=== PATIENT | female | born 1980 | race Caucasian/White ===

== ENCOUNTER 2017-12-17 11:31 | Inpatient (IN) | payer MEDICAID, OTHER ==
--- NOTE | 2017-12-17 12:11 | ED ---
Psych HPI - General Chief Complaint: Psychiatric Symptoms Stated Complaint: Depression Time Seen by Provider: 12/17/17 11:50 Source: patient, RN notes reviewed Mode of arrival: ambulatory Limitations: no limitations - History of Present Illness Initial Comments: 37-year-old female presents emergency Department chief complaint of depression. Patient states she's suffering with severe depression. Patient saw her EXPLOSIVE MAN who started on Lexapro. Patient states that she feels like she is worse. Patient states that she does not want to harm herself or the baby. Patient has no physical complaints. Patient states she has been diagnosed with bipolar disorder in the past which is been untreated. Patient does take medications for hypertension though she states she had no diagnosis of preeclampsia. - Related Data Home Medications Medication Instructions Recorded Confirmed Escitalopram [Lexapro] 20 mg PO DAILY 12/17/17 12/17/17 HYDROcodone/APAP 5-325MG [[place] 1 tab PO DAILY PRN 12/17/17 12/17/17 5-325] Ibuprofen [Motrin] 600 mg PO Q6H PRN 12/17/17 12/17/17 Labetalol [Trandate] 200 mg PO DAILY 12/17/17 12/17/17 Pnv,Calcium 72/Iron/Folic Acid 1 tab PO DAILY 12/17/17 12/17/17 [ Plus Tablet] Allergies Allergy/AdvReac Type Severity Reaction Status Date / Time amoxicillin Allergy Unknown Verified 12/17/17 12:41 Penicillins Allergy Unknown Verified 12/17/17 12:41 Review of Systems ROS Statement: Those systems with pertinent positive or pertinent negative responses have been documented in the HPI. ROS Other: All systems not noted in ROS Statement are negative. Past Medical History Past Medical History: No Reported History History of Any Multi-Drug Resistant Organisms: None Reported Past Surgical History: Section Past Psychological History: Anxiety, Bipolar, Depression Smoking Status: Current every day smoker Past Alcohol Use History: Occasional Past Drug Use History: None Reported General Exam Limitations: no limitations General appearance: alert, in no apparent distress Head exam: Present: atraumatic, normocephalic, normal inspection Eye exam: Present: normal appearance, PERRL, EOMI. Absent: scleral icterus, conjunctival injection, periorbital swelling ENT exam: Present: normal exam, normal oropharynx, mucous membranes moist Neck exam: Present: normal inspection, full ROM. Absent: tenderness, meningismus, lymphadenopathy Respiratory exam: Present: normal lung sounds bilaterally. Absent: respiratory distress, wheezes, rales, rhonchi, stridor Cardiovascular Exam: Present: regular rate, normal rhythm, normal heart sounds. Absent: systolic murmur, diastolic murmur, rubs, gallop, clicks Neurological exam: Present: alert, oriented X3, CN II-XII intact Psychiatric exam: Present: depressed Course Vital Signs 12/17/17 11:41 Temperature 98.2 F Pulse Rate 68 Respiratory 16 Rate Blood Pressure 127/85 O2 Sat by Pulse 98 Oximetry Medical Decision Making - Medical Decision Making 37-year-old female presented for depression. Patient has depression. Patient reportedly has self harming I cutting her leg which was not disclosed initially. Patient will be admitted to the psychiatric unit for further help and evaluation - Lab Data Lab Results 12/17/17 12/17/17 Range/Units 12:20 12:20 Urine HCG, Qual Not Detected (Not Detectd) Urine Opiates Screen Detected H (NotDetected) Ur Oxycodone Screen Not Detected (NotDetected) Urine Methadone Screen Not Detected (NotDetected) Ur Propoxyphene Screen Not Detected (NotDetected) Ur Barbiturates Screen Not Detected (NotDetected) U Tricyclic Antidepress Not Detected (NotDetected) Ur Phencyclidine Scrn Not Detected (NotDetected) Ur Amphetamines Screen Detected H (NotDetected) U Methamphetamines Scrn Detected H (NotDetected) U Benzodiazepines Scrn Not Detected (NotDetected) Urine Cocaine Screen Not Detected (NotDetected) U Marijuana (THC) Screen Detected H (NotDetected) Disposition Clinical Impression: depression, Deliberate self-cutting Disposition: TRANSFER TO PSYCH HOSP/UNIT Condition: Stable Referrals: None,Stated [Primary Care Provider] - 1-2 days
[2017-12-17 13:34] LABS: Amphetamine Screen,Urine Detected (NotDetected); Barbiturate Screen,Urine Not Detected (NotDetected); Benzodiazepines Screen,Urine Not Detected (NotDetected); Cocaine Screen,Urine Not Detected (NotDetected); Methadone Screen, Urine Not Detected (NotDetected); Opiate Screen,Urine Detected (NotDetected); Oxycodone Screen, Urine Not Detected (NotDetected); Phencyclidine Screen,Urine Not Detected (NotDetected); Tricyclic Antidepressant,Urine Not Detected (NotDetected); Urn Cannabinoid Scrn Detected (NotDetected)
[2017-12-17] MEDS ORDERED: ACETAMINOPHEN TAB 325 MG TAB PO PRN (19:38)
[2017-12-17] MEDS ORDERED: MAGNESIUM HYDROXIDE 2,400 MG/10 ML CUP PO PRN (19:38)
[2017-12-17] MEDS ORDERED: LORazepam 1 MG TAB PO PRN (19:38)
[2017-12-17] MEDS ORDERED: MAG HYDROX/AL HYDROX/SIMETH 30 ML CUP PO PRN (19:38)
[2017-12-17] MEDS ORDERED: ZIPRASIDONE 20 MG VIAL IM PRN (19:38)
[2017-12-17 19:43] VITALS: RESP 16
[2017-12-17 20:50] LABS: Appearance,Urine Clear (Clear); Bacteria,Urine Occasional /hpf; Bilirubin,Urine Negative (Negative); Blood,Urine Large (Negative); Color,Urine Light Yellow; Glucose,Urine (UA) Negative (Negative); Ketones,Urine 2+ (Negative); Leukocyte Esterase,Urine Moderate (Negative); Mucus,Urine Rare /hpf; Nitrite,Urine Negative (Negative); PH, Urine 6.5 (5.0-8.0); Protein,Urine Negative (Negative); RBC,Urine <1 /hpf (0-5); Specific Gravity,Urine 1.005 (1.001-1.035); Squamous Epithelial Cell,Urine 2 /hpf (0-4); Urobilinogen,Urine <2.0 mg/dL (<2.0); WBC,Urine 17 /hpf (0-5)
[2017-12-17] MEDS ORDERED: IBUPROFEN 600 MG TAB PO PRN (21:20)
--- NOTE | 2017-12-17 23:25 | P.HPMEDMHU ---
History of Present Illness H&P Date: 12/17/17 Chief Complaint: depression and anxiety Awa is a 37-year-old female with history of bipolar disorder, anxiety, who states she has history of suicide attempts in the past she is currently 2 months and states that she was struggling with depression so she was admitted to the psychiatric unit for psychiatric optimization. Patient states she also has a history of hypertension and needed to have a emergent because of uncontrolled blood pressure and stress to the baby. She denies any headaches, chills, dysuria or frequency. She states she was feeling more anxious than her mother was recently diagnosed with pancreatic cancer which is causing her more stress. Patient denied any other complaints states she is going to the bathroom normally denies any chest pain or shortness of breath Review of Systems Complete review of systems done and was negative other stated above Past Medical History Past Medical History: No Reported History, Hypertension History of Any Multi-Drug Resistant Organisms: None Reported Past Surgical History: Section Smoking Status: Current every day smoker Medications and Allergies Home Medications Medication Instructions Recorded Confirmed Type Escitalopram [Lexapro] 20 mg PO DAILY 12/17/17 12/17/17 History HYDROcodone/APAP 5-325MG [[place] 1 tab PO DAILY PRN 12/17/17 12/17/17 History 5-325] Ibuprofen [Motrin] 600 mg PO Q6H PRN 12/17/17 12/17/17 History Labetalol [Trandate] 200 mg PO DAILY 12/17/17 12/17/17 History Pnv,Calcium 72/Iron/Folic Acid 1 tab PO DAILY 12/17/17 12/17/17 History [ Plus Tablet] Allergies Allergy/AdvReac Type Severity Reaction Status Date / Time amoxicillin Allergy Unknown Verified 12/17/17 19:46 Penicillins Allergy Unknown Verified 12/17/17 19:46 Physical Exam Vitals: Vital Signs Temp Pulse Pulse Resp BP BP Pulse Ox 12/17/17 19:42 97.5 F L 102 H 16 110/78 96 12/17/17 18:58 98.3 F 94 18 105/79 97 12/17/17 11:41 98.2 F 68 16 127/85 98 Intake and Output 12/17/17 12/17/17 12/18/17 14:59 22:59 06:59 Other: Weight 57.153 kg - Constitutional General appearance: no acute distress - EENT Eyes: PERRLA Ears: bilateral: normal - Respiratory Respiratory: bilateral: CTA - Cardiovascular Rhythm: regular - Gastrointestinal General gastrointestinal: normal bowel sounds, soft - Integumentary Integumentary: normal - Neurologic Neurologic: CNII-XII intact - Musculoskeletal Musculoskeletal: gait normal - Psychiatric Psychiatric: A&O x's 3, appropriate affect Cranial Nerve Examination - Cranial Nerves Cranial Nerve II- Optic: Intact Cranial Nerve III- Oculomotor: Intact Cranial Nerve IV- Trochlear: Intact Cranial Nerve V- Trigeminal: Intact Cranial Nerve - Abducens: Intact Cranial Nerve VII- Facial: Intact Cranial Nerve VIII- Auditory: Intact Cranial Nerve IX- Glossopharyngeal: Intact Cranial Nerve X- Vagus: Intact Cranial Nerve XI- Accessory: Intact Cranial Nerve XII- Hypoglossal: Intact Results Results: Will check in am Labs: Abnormal Lab Results - Last 24 Hours (Table) 12/17/17 12/17/17 Range/Units 12:20 20:28 Urine Ketones 2+ H (Negative) Urine Blood Large H (Negative) Ur Leukocyte Esterase Moderate H (Negative) Urine WBC 17 H (0-5) /hpf Urine Bacteria Occasional H (None) /hpf Urine Mucus Rare H (None) /hpf Urine Opiates Screen Detected H (NotDetected) Ur Amphetamines Screen Detected H (NotDetected) U Methamphetamines Scrn Detected H (NotDetected) U Marijuana (THC) Screen Detected H (NotDetected) Thrombosis Risk Factor Assmnt - Choose All That Apply Each Factor Represents 1 point: or Other Risk Factors: No Other congenital or acquired thrombophilia - If yes, enter type in comment: No Thrombosis Risk Factor Assessment Total Risk Factor Score: 1 Thrombosis Risk Factor Assessment Level: Low Risk Assessment and Plan (1) HTN (hypertension) Narrative/Plan: Continue patient's outpatient regiment and titrate as needed Current Visit: Yes Status: Acute Code(s): I10 - ESSENTIAL (PRIMARY) HYPERTENSION SNOMED Code(s): 87744308 (2) Tobacco abuse Narrative/Plan: Patient was counseled Current Visit: Yes Status: Acute Code(s): Z72.0 - TOBACCO USE SNOMED Code( s): 105949152 (3) depression Narrative/Plan: Continue per primary team Current Visit: Yes Status: Acute Code(s): F53.0 - DEPRESSION SNOMED Code(s): 89886079 Plan: Thank you for the consult optimize as needed we'll check labs, follow-up urine culture this time UA was reviewed no clear evidence of infection await culture
[2017-12-18] MEDS: NICOTINE 14MG/24HR PATCH TRANSDERM SCH ×2 (00:13→08:14)
[2017-12-18] MEDS: PRENATAL VIT-IRON-FOLIC ACID 1 EACH CAP PO SCH ×2 (08:14→08:15)
[2017-12-18] MEDS: LABETALOL 200 MG TAB PO SCH (08:15)
[2017-12-18 09:43] LABS: ALT 52 U/L (9-52); AST 35 U/L (14-36); Albumin 3.8 g/dL (3.5-5.0); Alkaline Phosphatase 52 U/L (38-126); Anion Gap 7 mmol/L; Blood Urea Nitrogen 15 mg/dL (7-17); Calcium 9.6 mg/dL (8.4-10.2); Carbon Dioxide 29 mmol/L (22-30); Chloride 103 mmol/L (98-107); Cholesterol 142 mg/dL (<200); Glucose 124 mg/dL (74-99); HDL Cholesterol 39 mg/dL (40-60); LDL Cholesterol,Calculated 78 mg/dL (0-99); Potassium 3.9 mmol/L (3.5-5.1); Sodium 139 mmol/L (137-145); Total Bilirubin 0.6 mg/dL (0.2-1.3); Total Protein 7.2 g/dL (6.3-8.2); Triglycerides 126 mg/dL (<150)
[2017-12-18 10:25] LABS: Basophils # (A) 0.1 k/uL (0-0.2); Basophils % (A) 1 %; Eosinophils # (A) 0.2 k/uL (0-0.7); Eosinophils % (A) 3 %; HCT 41.3 % (34.0-46.0); HGB 13.4 gm/dL (11.4-16.0); Lymphocytes # (A) 3.3 k/uL (1.0-4.8); Lymphocytes % (A) 36 %; MCH 28.9 pg (25.0-35.0); MCHC 32.5 g/dL (31.0-37.0); MCV 88.7 fL (80.0-100.0); Mean Platelet Volume 6.4; Monocytes # (A) 0.5 k/uL (0-1.0); Monocytes % (A) 6 %; Neutrophils # (A) 4.9 k/uL (1.3-7.7); Neutrophils % (A) 53 %; Platelet Count 403 k/uL (150-450); RBC 4.65 m/uL (3.80-5.40); RDW 12.7 % (11.5-15.5); WBC 9.2 k/uL (3.8-10.6)
--- NOTE | 2017-12-18 10:35 | P.HP ---
Psychiatric H&P - . H&P Date: 12/18/17 History & Physical: Allergies Allergy/AdvReac Type Severity Reaction Status Date / Time amoxicillin Allergy Unknown Verified 12/17/17 19:46 Penicillins Allergy Unknown Verified 12/17/17 19:46 Vital Signs Temp 98 F 12/18/17 06:23 Pulse 83 12/18/17 06:23 Resp 16 12/18/17 06:23 BP 99/71 12/18/17 06:23 Pulse Ox 96 12/17/17 19:42 Intake & Output 12/17/17 12/18/17 12/18/17 18:59 06:59 18:59 Weight 57.153 kg Laboratory Last Values Sodium 139 mmol/L (137-145) 12/18/17 09:07 Potassium 3.9 mmol/L (3.5-5.1) 12/18/17 09:07 Chloride 103 mmol/L (98-107) 12/18/17 09:07 Carbon Dioxide 29 mmol/L (22-30) 12/18/17 09:07 Anion Gap 7 mmol/L 12/18/17 09:07 BUN 15 mg/dL (7-17) 12/18/17 09:07 Creatinine 0.71 mg/dL (0.52-1.04) 12/18/17 09:07 Est GFR (CKD-EPI)AfAm >90 (>60 ml/min/1.73 sqM) 12/18/17 09:07 Est GFR (CKD-EPI)NonAf >90 (>60 ml/min/1.73 sqM) 12/18/17 09:07 Glucose 124 mg/dL (74-99) H 12/18/17 09:07 Calcium 9.6 mg/dL (8.4-10.2) 12/18/17 09:07 Total Bilirubin 0.6 mg/dL (0.2-1.3) 12/18/17 09:07 AST 35 U/L (14-36) 12/18/17 09:07 ALT 52 U/L (9-52) 12/18/17 09:07 Alkaline Phosphatase 52 U/L (38-126) 12/18/17 09:07 Total Protein 7.2 g/dL (6.3-8.2) 12/18/17 09:07 Albumin 3.8 g/dL (3.5-5.0) 12/18/17 09:07 Triglycerides 126 mg/dL (<150) 12/18/17 09:07 Cholesterol 142 mg/dL (<200) 12/18/17 09:07 LDL Cholesterol, Calc 78 mg/dL (0-99) 12/18/17 09:07 HDL Cholesterol 39 mg/dL (40-60) L 12/18/17 09: TSH 0.281 mIU/L (0.465-4.680) L 12/18/17 09:07 Urine Color Light Yellow 12/17/17 20: Urine Appearance Clear (Clear) 12/17/17 20: Urine pH 6.5 (5.0-8.0) 12/17/17 20: Ur Specific [place] 1.005 (1.001-1.035) 12/17/17 20: Urine Protein Negative (Negative) 12/17/17 20: Urine Glucose (UA) Negative (Negative) 12/17/17 20: Urine Ketones 2+ (Negative) H 12/17/17 20: Urine Blood Large (Negative) H 12/17/17 20:28 Urine Nitrite Negative (Negative) 12/17/17 20: Urine Bilirubin Negative (Negative) 12/17/17 20: Urine Urobilinogen <2.0 mg/dL (<2.0) 12/17/17 20:28 Ur Leukocyte Esterase Moderate (Negative) H 12/17/17 20:28 Urine RBC <1 /hpf (0-5) 12/17/17 20: Urine WBC 17 /hpf (0-5) H 12/17/17 20:28 Ur Squamous Epith Cells 2 /hpf (0-4) 12/17/17 20:28 Urine Bacteria Occasional /hpf (None) H 12/17/17 20:28 Urine Mucus Rare /hpf (None) H 12/17/17 20:28 Urine HCG, Qual Not Detected (Not Detectd) 12/17/17 12:20 Urine Opiates Screen Detected (NotDetected) H 12/17/17 12:20 Ur Oxycodone Screen Not Detected (NotDetected) 12/17/17 12:20 Urine Methadone Screen Not Detected (NotDetected) 12/17/17 12:20 Ur Propoxyphene Screen Not Detected (NotDetected) 12/17/17 12:20 Ur Barbiturates Screen Not Detected (NotDetected) 12/17/17 12:20 U Tricyclic Antidepress Not Detected (NotDetected) 12/17/17 12:20 Ur Phencyclidine Scrn Not Detected (NotDetected) 12/17/17 12:20 Ur Amphetamines Screen Detected (NotDetected) H 12/17/17 12:20 U Methamphetamines Scrn Detected (NotDetected) H 12/17/17 12:20 U Benzodiazepines Scrn Not Detected (NotDetected) 12/17/17 12:20 Urine Cocaine Screen Not Detected (NotDetected) 12/17/17 12:20 U Marijuana (THC) Screen Detected (NotDetected) H 12/17/17 12:20 Assessment and Plan Assessment: 37-year-old female presents emergency Department chief complaint of depression. Patient states she's suffering with severe depression. Patient saw her EXPLOSIVES ENGINEER who started on Lexapro. Patient states that she feels like she is worse. Patient states that she does not want to harm herself or the baby. Patient has no physical complaints. Patient states she has been diagnosed with bipolar disorder in the past which is been untreated. Patient does take medications for hypertension though she states she had no diagnosis of preeclampsia. Musculoskeletal Examination - Abnormal/Involuntary Movements: [none] Strength: [greater than antigravity (greater than/equal to 3/5) in all extremities:] Muscle Tone: [no impairment] Gait: [grossly normal] Station: [grossly normal] Mental Status Examination - General Appearance: [ casual, bizarre, appears stated age] Speech/Language: [spontaneous, slow, rapid, loud Attitude/Behavior: [cooperative, guarded, irritable, withdrawn, indifferent] Mood: [depressed, anxious, elated, irritable, angry, fearful, hopelessness] Affect: [ lively, flat, incongruent, labile, blunted constricted] Orientation: [time, person, place situation] Thought Content: [wnl Risk Factors: [not suicidal (ideations, plan) Perception: [wnl Thought Processes: [goal-oriented Concentration/Attention Span: [impaired] [Per observation and interview with the patient] Recent Memory: [wnl ] [ 3 out of 3 in 3 minutes] Remote Memory: [wnl] [past events, as related history] Intelligence: [average] [based on history, based on vocabulary, syntax, grammar , and content] Judgement: [ fair] [per patient's behavior/history of present illness] Insight: [fair] [understanding severity of illness/history of present illness] Admitting Diagnosis: [bipolar disorder-depressed] Patient Strengths - Personal Skills: [x] Achievements: [x] Steady employment/financial stability: [x] Housing stability: [x] Able to vocalize needs: [x] Motivation, determination, readiness for change: [x] Patient Limitations: [medication] Initial Plan of Care: [She will be admitted on a voluntary basis to the behavioral health unit. She'll be placed in delgado milieu therapeutic environment and close observation for any suicidal ideation. She does have a history of cutting one week ago on her legs. She'll be evaluated by psychiatry , medicine, nursing staff, social work staff, recreational therapy and will be evaluated in team meetings on a daily basis her initial medications will be Invega 3 mg by mouth daily at bedtime, Lamictal 25 mg by mouth daily at bedtime , and Mirapex 0.5 mg for restless leg syndrome.] Estimated Length of Stay: [5-7] Initial Discharge Plan: [home, referred to therapist Prognosis: [good, fair, guarded] Justification for Inpatient Hospitalization - [Hallucinations, delusions, agitation, anxiety, depression resulting in significant loss of functioning.] [Dangerous to self, others, or property with need for controlled environment.] [Emotional or behavioral conditions and complications requiring 24 hour medical and nursing care.] [Need for special drug therapy, or other therapeutic program requiring continuous hospitalization.] [Failure of social or occupational functioning.] [Inability to meet basic life and health needs.] (1) Deliberate self-cutting Current Visit: Yes Status: Acute Code(s): Z72.89 - OTHER PROBLEMS RELATED TO LIFESTYLE SNOMED Code(s): 510137869 (2) depression Current Visit: Yes Status: Acute Code(s): F53.0 - DEPRESSION SNOMED Code(s): 39387987 Time with Patient: Greater than 30
[2017-12-18] MEDS: PALIPERIDONE 3 MG TAB.ER.24 PO SCH (20:19)
[2017-12-18] MEDS: PRAMIPEXOLE 0.5 MG TAB PO SCH (20:19)
[2017-12-18] MEDS: HYDROcodone/APAP 5-325MG 1 EACH TAB PO PRN (20:24)
[2017-12-18] MEDS ORDERED: lamoTRIgine 25 MG TAB PO SCH (21:00)
[2017-12-19] MEDS: LABETALOL 200 MG TAB PO SCH (08:02)
[2017-12-19] MEDS: NICOTINE 14MG/24HR PATCH TRANSDERM SCH (08:02)
[2017-12-19] MEDS: HYDROcodone/APAP 5-325MG 1 EACH TAB PO PRN (08:05)
--- NOTE | 2017-12-19 10:04 | P.PN ---
Subjective Progress Note Date: 12/19/17 Principal diagnosis: Bipolar affective disorder depressed Patient today states that she feels not suicidal nor homicidal and with the rest she's been able to get with the Mirapex 0.5 mg by mouth daily at bedtime for restless leg that she feels remarkably better. She feels the Invega has helped her along with Lamictal 25 mg at bedtime. She feels environment has been supportive and helped her regain control of her life and handle life stressors. She talked about wanting to go home tomorrow and I agree with her after Lamictal 50 mg by mouth daily at bedtime and rest begun outpatient basis. Objective - Vital Signs Vital signs: Vital Signs Temp 98 F 12/18/17 06:23 Pulse 83 12/18/17 06:23 Resp 16 12/18/17 06:23 BP 99/71 12/18/17 06:23 Pulse Ox 96 12/17/17 19:42 - Labs CBC & Chem 7: 12/18/17 09:07 12/18/17 09:07 Labs: Abnormal Lab Results - Last 24 Hours (Table) 12/18/17 Range/Units 09:07 TSH 0.281 L (0.465-4.680) mIU/L Assessment and Plan Assessment: 37-year-old female presents emergency Department chief complaint of depression. Patient states she's suffering with severe depression. Patient saw her GOVERNMENT GAUGER who started on Lexapro. Patient states that she feels like she is worse. Patient states that she does not want to harm herself or the baby. Patient has no physical complaints. Patient states she has been diagnosed with bipolar disorder in the past which is been untreated. Patient does take medications for hypertension though she states she had no diagnosis of preeclampsia. Musculoskeletal Examination - Abnormal/Involuntary Movements: [none] Strength: [greater than antigravity (greater than/equal to 3/5) in all extremities:] Muscle Tone: [no impairment] Gait: [grossly normal] Station: [grossly normal] Mental Status Examination - General Appearance: [ casual, bizarre, appears stated age] Speech/Language: [spontaneous, slow, rapid, loud Attitude/Behavior: [cooperative, guarded, irritable, withdrawn, indifferent] Mood: [depressed, anxious, elated, irritable, angry, fearful, hopelessness] Affect: [ lively, flat, incongruent, labile, blunted constricted] Orientation: [time, person, place situation] Thought Content: [wnl Risk Factors: [not suicidal (ideations, plan) Perception: [wnl Thought Processes: [goal-oriented Concentration/Attention Span: [impaired] [Per observation and interview with the patient] Recent Memory: [wnl ] [ 3 out of 3 in 3 minutes] Remote Memory: [wnl] [past events, as related history] Intelligence: [average] [based on history, based on vocabulary, syntax, grammar , and content] Judgement: [ fair] [per patient's behavior/history of present illness] Insight: [fair] [understanding severity of illness/history of present illness] Admitting Diagnosis: [bipolar disorder-depressed] Patient Strengths - Personal Skills: [x] Achievements: [x] Steady employment/financial stability: [x] Housing stability: [x] Able to vocalize needs: [x] Motivation, determination, readiness for change: [x] Patient Limitations: [medication] Initial Plan of Care: [She will be admitted on a voluntary basis to the behavioral health unit. She'll be placed in delgado milieu therapeutic environment and close observation for any suicidal ideation. She does have a history of cutting one week ago on her legs. She'll be evaluated by psychiatry , medicine, nursing staff, social work staff, recreational therapy and will be evaluated in team meetings on a daily basis her initial medications will be Invega 3 mg by mouth daily at bedtime for delusional/psychotic thoughts, Lamictal 50 mg by mouth daily at bedtime, and Mirapex 0.5 mg for restless leg syndrome.] Estimated Length of Stay: [1] Initial Discharge Plan: [home, referred to therapist, [facility] Prognosis: [good] Justification for Inpatient Hospitalization - [Emotional or behavioral conditions and complications requiring 24 hour medical and nursing care.] [Need for special drug therapy, or other therapeutic program requiring continuous hospitalization.] (1) Deliberate self-cutting Current Visit: Yes Status: Acute Priority: Low Code(s): Z72.89 - OTHER PROBLEMS RELATED TO LIFESTYLE SNOMED Code(s): 152284992 (2) depression Current Visit: Yes Status: Acute Priority: Low Code(s): F53.0 - DEPRESSION SNOMED Code(s): 72293160 Time with Patient: Less than 30
[2017-12-19] MEDS: PALIPERIDONE 3 MG TAB.ER.24 PO SCH (20:08)
[2017-12-19] MEDS: PRAMIPEXOLE 0.5 MG TAB PO SCH (20:08)
[2017-12-19] MEDS ORDERED: lamoTRIgine 25 MG TAB PO SCH (21:00)
[2017-12-20 06:34] VITALS: BP 111/65; PULSE 87; TEMP 98.2
[2017-12-20] MEDS: NICOTINE 14MG/24HR PATCH TRANSDERM SCH (08:51)
[2017-12-20] MEDS: LABETALOL 200 MG TAB PO SCH (08:52)
[2017-12-20] MEDS: PRENATAL VIT-IRON-FOLIC ACID 1 EACH CAP PO SCH (08:52)
[2017-12-20] MEDS: HYDROcodone/APAP 5-325MG 1 EACH TAB PO PRN (08:54)
--- NOTE | 2017-12-20 09:55 | P.DS ---
Providers Date of admission: 12/17/17 18:40 Expected date of discharge: 12/20/17 Attending physician: Anand Ybarra DO Consults: 12/17/17 19:38 Consult Physician Routine Consulting Provider: Alex Mendieta Consult Reason/Comments: H&P for mental health admission Do you want consulting provider notified?: Yes Primary care physician: Stated None - Discharge Diagnosis(es) (1) Deliberate self-cutting 37-year-old female presents emergency Department chief complaint of depression. Patient states she's suffering with severe depression. Patient saw her SLUBBER MACHINE OPERATOR who started on Lexapro. Patient states that she feels like she is worse. Patient states that she does not want to harm herself or the baby. Patient has no physical complaints. Patient states she has been diagnosed with bipolar disorder in the past which is been untreated. Patient does take medications for hypertension though she states she had no diagnosis of preeclampsia. Current Visit: Yes Status: Resolved Priority: Low (2) depression Current Visit: Yes Status: Resolved Priority: Low Hospital Course: Kathy was evaluated for her depression and psychosis which were resulted in a diagnoses of bipolar affective disorder. We discussed her medication Lexapro which is inappropriate and switch her to Invega 3 mg by mouth daily at bedtime and Lamictal 50 mg by mouth daily at bedtime and should be further titrated and outpatient basis. She has shown that she has clear sensorium appropriateness with peers and staff and interacting delgado milieu therapeutic environment and positive emotional stability. Mental status examination The patient presents alert, pleasant, and cooperative. There calmly seated without any agitated behavior. [She] reports that [her] mood is good. Affect is congruent and euthymic. [She] deny having any suicidal or homicidal ideation intent or plan. [She] denies any auditory or visual hallucinations. There is no evidence of any delusional thought content. [Her] thought process is linear and goal-directed. [Her] speech is fluent and nonpressured. [Her] memory and concentration is grossly intact for the purposes of this session. Discharge diagnosis; bipolar affective disorderdepressed type Patient Condition at Discharge: Stable Plan - Discharge Summary Discharge Rx Participant: No New Discharge Prescriptions: New lamoTRIgine [LaMICtal] 50 mg PO 2100 30 Days #60 tab Paliperidone [Invega] 3 mg PO 2100 30 Days #30 tab.er.24 Pramipexole [Mirapex] 0.5 mg PO HS 30 Days #30 tab Discontinued Pnv,Calcium 72/Iron/Folic Acid [ Plus Tablet] 1 tab PO DAILY Labetalol [Trandate] 200 mg PO DAILY Ibuprofen [Motrin] 600 mg PO Q6H PRN PRN Reason: Pain Escitalopram [Lexapro] 20 mg PO DAILY HYDROcodone/APAP 5-325MG [[place] 5-325] 1 tab PO DAILY PRN PRN Reason: Pain Discharge Medication List Paliperidone [Invega] 3 mg PO 2100 30 Days #30 tab.er.24 12/20/17 [Rx] Pramipexole [Mirapex] 0.5 mg PO HS 30 Days #30 tab 12/20/17 [Rx] lamoTRIgine [LaMICtal] 50 mg PO 2100 30 Days #60 tab 12/20/17 [Rx] Follow up Appointment(s)/Referral(s): [facility] [Outside] - 12/27/17 9:00 am (Agueda Mariano 12/27 @ 09:00 Dr High 12/27 @ 10:00) None,Stated [Primary Care Provider] - 1-2 days Discharge Disposition: HOME SELF-CARE
== END 2017-12-20 12:46 | disposition home or self-care (01) | DRG 885 ==
LOC: EC 11:31 → 3MHU 18:40
PROVIDERS: ADMIT Psychiatry & Neurology Psychiatry; ATTEND Psychiatry & Neurology Psychiatry
DX: F31.5 Bipolar disorder, current episode depressed, severe, with psychotic features (principal); G25.81 Restless legs syndrome; F17.200 Nicotine dependence, unspecified, uncomplicated; F41.9 Anxiety disorder, unspecified; Z79.899 Other long term (current) drug therapy; Z88.0 Allergy status to penicillin; Z91.5 Personal history of self-harm
CPT/HCPCS: 80053; 80061; 80306; 81001; 81025; 82075; 83036; 84443; 85025; 99285

== ENCOUNTER 2018-01-17 15:06 | Inpatient (IN) | payer MEDICAID, OTHER ==
--- NOTE | 2018-01-17 16:16 | ED ---
General Adult HPI - General Chief complaint: Psychiatric Symptoms Stated complaint: mental health Time Seen by Provider: 01/17/18 15:19 Source: patient, RN notes reviewed Mode of arrival: ambulatory Limitations: no limitations - History of Present Illness Initial comments: 37-year-old female with a past history of hypertension, bipolar disorder, depression, anxiety presents to the emergency department for a chief complaint of self-harm and suicidal thoughts. Patient states she has cut her right leg with a shaving razor as well as her left arm. Tetanus up-to-date. Patient states she has been having suicidal thoughts over the past few days and today considered throwing herself into traffic. Patient denies suicidal thoughts at this time. She denies homicidal thoughts at this time. Patient states she is on her third med change this month which she thinks is contributing to these thoughts.Patient has no other complaints at this time including shortness of breath, chest pain, abdominal pain, nausea or vomiting, headache, or visual changes. - Related Data Home Medications Medication Instructions Recorded Confirmed Medroxyprogesterone Acetate 150 mg IM ONCE 01/17/18 01/17/18 [Depo-Provera] OXcarbazepine [Trileptal] 150 mg PO BID 01/17/18 01/17/18 Paliperidone [Invega] 3 mg PO DAILY 01/17/18 01/17/18 Pramipexole [Mirapex] 0.5 mg PO DAILY 01/17/18 01/17/18 hydrOXYzine HCL [Atarax] 50 mg PO HS 01/17/18 01/17/18 lamoTRIgine [LaMICtal] 50 mg PO DAILY 01/17/18 01/17/18 Allergies Allergy/AdvReac Type Severity Reaction Status Date / Time amoxicillin Allergy Unknown Verified 01/17/18 15:38 Penicillins Allergy Unknown Verified 01/17/18 15:38 Review of Systems ROS Statement: Those systems with pertinent positive or pertinent negative responses have been documented in the HPI. ROS Other: All systems not noted in ROS Statement are negative. Past Medical History Past Medical History: No Reported History, Hypertension History of Any Multi-Drug Resistant Organisms: None Reported Past Surgical History: Section Past Psychological History: Anxiety, Bipolar, Depression Smoking Status: Current every day smoker General Exam Limitations: no limitations General appearance: alert, in no apparent distress Head exam: Present: atraumatic, normocephalic, normal inspection Eye exam: Present: normal appearance, PERRL, EOMI. Absent: scleral icterus, conjunctival injection, periorbital swelling ENT exam: Present: normal exam, mucous membranes moist Neck exam: Present: normal inspection, full ROM. Absent: tenderness, meningismus, lymphadenopathy Respiratory exam: Present: normal lung sounds bilaterally. Absent: respiratory distress, wheezes, rales, rhonchi, stridor Cardiovascular Exam: Present: regular rate, normal rhythm, normal heart sounds. Absent: systolic murmur, diastolic murmur, rubs, gallop, clicks Extremities exam: Present: other (There are 2 superficial abrasions noted to the left dorsal arm. There are multiple superficial abrasions noted to the right thigh.) Neurological exam: Present: alert, oriented X3, CN II-XII intact Psychiatric exam: Present: normal affect, normal mood Course Vital Signs 01/17/18 01/17/18 15:26 21:37 Temperature 98.4 F 97.9 F Pulse Rate 109 H 90 Respiratory 16 18 Rate Blood Pressure 137/102 121/89 O2 Sat by Pulse 99 98 Oximetry - Reevaluation(s) Reevaluation #1: 01/17/18 21:[address] Lazcano at 9:17 PM. EPS at bedside Medical Decision Making - Lab Data Result diagrams: 01/18/18 09:02 01/18/18 09:02 Lab Results 01/17/18 01/17/18 Range/Units 15:39 15:39 Urine HCG, Qual Not Detected (Not Detectd) Urine Opiates Screen Not Detected (NotDetected) Ur Oxycodone Screen Not Detected (NotDetected) Urine Methadone Screen Not Detected (NotDetected) Ur Propoxyphene Screen Not Detected (NotDetected) Ur Barbiturates Screen Not Detected (NotDetected) U Tricyclic Antidepress Not Detected (NotDetected) Ur Phencyclidine Scrn Not Detected (NotDetected) Ur Amphetamines Screen Detected H (NotDetected) U Methamphetamines Scrn Detected H (NotDetected) U Benzodiazepines Scrn Not Detected (NotDetected) Urine Cocaine Screen Not Detected (NotDetected) U Marijuana (THC) Screen Detected H (NotDetected) Disposition Clinical Impression: Depression, Suicidal ideation Disposition: TRANSFER TO PSYCH HOSP/UNIT Condition: Fair
[2018-01-17 16:44] LABS: Cocaine Screen,Urine Not Detected (NotDetected); Opiate Screen,Urine Not Detected (NotDetected); Phencyclidine Screen,Urine Not Detected (NotDetected); Urn Cannabinoid Scrn Detected (NotDetected)
[2018-01-17 16:45] LABS: Amphetamine Screen,Urine Detected (NotDetected); Barbiturate Screen,Urine Not Detected (NotDetected); Benzodiazepines Screen,Urine Not Detected (NotDetected); Methadone Screen, Urine Not Detected (NotDetected); Oxycodone Screen, Urine Not Detected (NotDetected); Tricyclic Antidepressant,Urine Not Detected (NotDetected)
[2018-01-17] MEDS ORDERED: LORazepam 1 MG TAB PO PRN (22:31)
[2018-01-17] MEDS ORDERED: ZIPRASIDONE 20 MG VIAL IM PRN (22:31)
[2018-01-17] MEDS ORDERED: MAGNESIUM HYDROXIDE 2,400 MG/10 ML CUP PO PRN (22:31)
[2018-01-17] MEDS ORDERED: MAG HYDROX/AL HYDROX/SIMETH 30 ML CUP PO PRN (22:31)
[2018-01-17] MEDS ORDERED: LORazepam 2 MG/ML INJ IM PRN (22:33)
[2018-01-17] MEDS: PALIPERIDONE 3 MG TAB.ER.24 PO SCH (23:58)
[2018-01-17] MEDS: lamoTRIgine 25 MG TAB PO SCH (23:58)
[2018-01-17] MEDS: PRAMIPEXOLE 0.5 MG TAB PO SCH (23:58)
[2018-01-18] MEDS: PALIPERIDONE 3 MG TAB.ER.24 PO SCH (00:03)
[2018-01-18] MEDS: lamoTRIgine 25 MG TAB PO SCH (00:03)
[2018-01-18] MEDS: PRAMIPEXOLE 0.5 MG TAB PO SCH (00:04)
[2018-01-18 09:19] LABS: Basophils # (A) 0.1 k/uL (0-0.2); Basophils % (A) 1 %; Eosinophils # (A) 0.3 k/uL (0-0.7); Eosinophils % (A) 3 %; HCT 44.4 % (34.0-46.0); HGB 14.2 gm/dL (11.4-16.0); Lymphocytes # (A) 3.8 k/uL (1.0-4.8); Lymphocytes % (A) 30 %; MCH 28.1 pg (25.0-35.0); MCHC 31.9 g/dL (31.0-37.0); MCV 88.3 fL (80.0-100.0); Mean Platelet Volume 6.5; Monocytes # (A) 0.6 k/uL (0-1.0); Monocytes % (A) 5 %; Neutrophils # (A) 7.5 k/uL (1.3-7.7); Neutrophils % (A) 60 %; Platelet Count 625 k/uL (150-450); RBC 5.03 m/uL (3.80-5.40); RDW 13.6 % (11.5-15.5); WBC 12.5 k/uL (3.8-10.6)
[2018-01-18 09:44] LABS: ALT 23 U/L (9-52); AST 19 U/L (14-36); Albumin 3.9 g/dL (3.5-5.0); Alkaline Phosphatase 82 U/L (38-126); Anion Gap 11 mmol/L; Blood Urea Nitrogen 14 mg/dL (7-17); Calcium 10.1 mg/dL (8.4-10.2); Carbon Dioxide 24 mmol/L (22-30); Chloride 107 mmol/L (98-107); Cholesterol 192 mg/dL (<200); Glucose 114 mg/dL (74-99); HDL Cholesterol 32 mg/dL (40-60); LDL Cholesterol,Calculated 127 mg/dL (0-99); Potassium 4.7 mmol/L (3.5-5.1); Sodium 142 mmol/L (137-145); Total Bilirubin 0.4 mg/dL (0.2-1.3); Total Protein 8.2 g/dL (6.3-8.2); Triglycerides 163 mg/dL (<150)
--- NOTE | 2018-01-18 10:18 | HP ---
HISTORY AND PHYSICAL DATE OF SERVICE DICTATION: 01/18/2018 IDENTIFYING DATA: The patient is a 37-year-old , but , female who was admitted to the mental health unit for worsening symptoms of depression with suicidal ideation. HISTORY OF PRESENT ILLNESS: The patient states that she is experiencing worsening symptoms of depression. She has had numerous medication changes in the last 1-2 months. She was recently on this mental health unit under the care of Dr. Ybarra and was started on Lamictal, Invega, and Mirapex. She states that this combination provided no benefit. She saw her outpatient psychiatrist, Dr. Katz just recently at [facility] and more medication changes were made. She was placed on Trileptal and Wellbutrin as well as Vistaril as needed. The patient states that she has an established diagnosis of bipolar disorder dating back to 2005. She indicates that she has had numerous episodes of depression in the past. We reviewed criteria for depression episodes. She states she has had hypomanic episodes in the past, described as periods with decreased sleep, increased energy, restlessness, racing thoughts, impulsivity, but she was still able to function. She indicates having no true manic episode as she was always able to function. She has never experienced any symptoms of psychosis. She describes feelings of anxiety that are present on a daily basis and throughout the day. She feels the symptoms are excessive even when her mood is relatively stable. This will contribute to restlessness, sleep impairment, irritability, concentration difficulty. She is reporting no homicidal ideation, intent, or plan. She does have a 3-month-old son. She states she never has had any thoughts of harming him. She endorses no abuse or neglect toward her son. She presented with suicidal ideation. She states she feels overwhelmed and hopeless and has thoughts of dying. She feels safe here in the hospital. She states that she hopes there is something we can do to improve her mood. PAST PSYCHIATRIC HISTORY: This is her second inpatient psychiatric admission. She was last on this mental health unit December 17, 2017 for approximately 3 days under the care of Dr. Ybarra. She was started on Lamictal 50 mg at bedtime, Invega 3 mg at bedtime. Mirapex 0.5 mg at bedtime. She has outpatient followup with [facility] and has just recently met her outpatient psychiatrist. She has a history of being prescribed Trileptal, which she felt was helpful for stabilization of her mood episodes. She states it was only discontinued as it was [place] to [place] [facility] and when she left, she had no prescription. She states her mother successfully takes Trileptal as well for bipolar disorder. She has also been on Lexapro in the past, which seem to cause suicidal ideation. She was also treated with Zoloft in the past, which seemed to help depression and anxiety. She expresses interest in restarting Zoloft. She met with her outpatient psychiatrist recently and was instructed to start the Wellbutrin XL 150 mg daily that was prescribed by another physician. The patient does have a long history of self-injurious behavior in the form of cutting for the past 20 years. She recently cut her upper extremity and lower extremities just prior to this admission. No sutures were required. PAST MEDICAL HISTORY: Hepatitis C. She is 3 months . ALLERGIES: AMOXICILLIN, PENICILLIN. CHEMICAL DEPENDENCY HISTORY: She has an opiate use disorder history. She reports she has been practically clean from opiates since 2017. However, she took [place] 2 days ago due to her stress. She uses marijuana on a regular basis. She reports using alcohol rarely. She had methamphetamine in her urine drug screen. She states that she did not knowingly take that and she suspects it may have been put in the marijuana. She has been in inpatient chemical dependency treatment once in the past. FAMILY PSYCHIATRIC HISTORY: Her mother is known to have bipolar disorder treated with Trileptal, Vistaril and Seroquel. No suicides in the family: FAMILY CHEMICAL DEPENDENCY HISTORY: Both parents are known to have an alcohol use disorder. LEGAL HISTORY: The patient has been arrested numerous times, twice for disorderly conduct due to alcohol use. Three possession of heroin charges. Most recently, she was arrested for uttering and publishing. She served a week in [facility] for [place] of court. She is currently on probation. SOCIAL HISTORY: The patient is 37 years old. She is , but has been for 4 years. She has a boyfriend of 3 years, whom she lives with. With her boyfriend she has a 3-month- old son. The patient is unemployed. Her boyfriend is unemployed. She has a 9th grade education. No history of service. She has no siblings. She is originally from the [facility]. ABUSE HISTORY: Unknown. MENTAL STATUS EXAM: The patient is a thin, female appearing her stated age. She has short hair. She wears glasses. She has numerous visible tattoos on her exposed extremities and upper chest. She is dressed in hospital gowns. She is alert. She is cooperative, pleasant. She is somewhat hyperactive as she seated in the chair, often changing position and is demonstrative with speech, using her hands. She demonstrates no verbal or physical aggressiveness. She identifies a depressed and hopeless mood. She reports feeling safe in the hospital, but otherwise presented with suicidal ideation and felt she could not be safe at home. No homicidal ideation, intent, or plan. She endorses no thoughts of harming her son. She endorses no auditory or visual hallucinations or any specific delusions. There is no observed evidence of psychosis. She can be circumstantial at times, but demonstrates no tangential thinking, loose associations or flight of ideas. Insight and judgment limited. She is oriented to person, place, and date. She is able to spell world backwards. Affect is constricted, overall. IMPRESSION: 1. Bipolar 2 disorder, most recent depressed, generalized anxiety disorder. 2. Opiate use disorder, cannabis use disorder. 3. Cluster B traits. 4. Hepatitis C, 3 months . PLAN: The patient has been admitted to the mental health unit. She is here voluntarily. We reviewed her presenting symptoms and treatment options. It does appear that she has a bipolar 2 disorder. She feels confident that the Trileptal was effective in the past for stabilization of mood. She states her mother successfully uses it as well for bipolar disorder. We will initiate Trileptal 150 mg twice daily with a plan of titrating it further. She may use Vistaril 50 mg twice daily as needed for anxiety symptoms. We will consider initiating the Zoloft for treatment of her anxiety symptoms, but we will defer that at this time. She will be seen by Internal Medicine for routine history and physical exam. We will monitor for safety and encourage her participation in the milieu. Social Work will meet with her to complete a psychosocial assessment. We will involve her boyfriend and other family in treatment and discharge planning as she will allow. MMODL / IJN: [id number] /
[2018-01-18] MEDS: OXcarbazepine 150 MG TAB PO SCH ×2 (11:50→20:20)
[2018-01-18] MEDS: NICOTINE 21MG/24HR PATCH TRANSDERM SCH (11:50)
[2018-01-18] MEDS: ACETAMINOPHEN TAB 325 MG TAB PO PRN (11:55)
--- NOTE | 2018-01-18 15:33 | P.CONS ---
History of Present Illness - Reason for Consult Consult date: 01/18/18 - History of Present Illness The patient is a 37 yo F with PMH of polysusbtance abuse (heroin, marijuana, cocaine), HTN, active smoker, and Hep C who presented to the ED for suicidal ideation. She endorsed self-harming via cutting her skin via a shaving razor. At time of interview, she noted that she is feeling better and denied any active complaints. She denied any suicidal or suicidal ideation, chest pain, SOB , nausea, vomiting, dizziness, dysuria, abdominal pain, or headaches. The patient believes that her mood swings are likely because of the multiple psychiatric medication changes recently. The patient doesn't follow regularly with a physician and hasn't seen anyone for Hepatitis C. She notes her only actively uses marijuana and that her last use of heroin was 18 months ago. She believes the marijuana she takes might have bene laced with amphetamines. Review of Systems Pertinent positives and negatives as discussed in HPI, a complete review of systems was performed and all other systems are negative. Past Medical History Past Medical History: No Reported History, Hypertension History of Any Multi-Drug Resistant Organisms: None Reported Past Surgical History: Section Past Psychological History: Anxiety, Bipolar, Depression Smoking Status: Current every day smoker Medications and Allergies Home Medications Medication Instructions Recorded Confirmed Type Medroxyprogesterone Acetate 150 mg IM ONCE 01/17/18 01/17/18 History [Depo-Provera] OXcarbazepine [Trileptal] 150 mg PO BID 01/17/18 01/17/18 History Paliperidone [Invega] 3 mg PO DAILY 01/17/18 01/17/18 History Pramipexole [Mirapex] 0.5 mg PO DAILY 01/17/18 01/17/18 History hydrOXYzine HCL [Atarax] 50 mg PO HS 01/17/18 01/17/18 History lamoTRIgine [LaMICtal] 50 mg PO DAILY 01/17/18 01/17/18 History Allergies Allergy/AdvReac Type Severity Reaction Status Date / Time amoxicillin Allergy Unknown Verified 01/17/18 15:38 Penicillins Allergy Unknown Verified 01/17/18 15:38 Physical Exam Vitals: Vital Signs Temp Pulse Pulse Resp BP BP Pulse Ox 01/18/18 06:33 97.5 F L 77 16 113/71 01/17/18 23:27 97.1 F L 90 16 114/75 97 01/17/18 21:37 97.9 F 90 18 121/89 98 01/17/18 15:26 98.4 F 109 H 16 137/102 99 Intake and Output 01/17/18 01/18/18 01/18/18 22:59 06:59 14:59 Other: Weight 53.977 kg General: [non toxic], [no distress], [appears older than stated age], [normal weight] Derm: [multiple healing abrasions and lacerations over both forearms] [no unusual ecchymoses], [warm], [dry] Head: [atraumatic], [normocephalic], [symmetric] Eyes: [EOMI], [no lid lag], [anicteric sclera], [pupils equal round reactive to light] ENT: [Nose and ears atraumatic], [no thrush], [no pharyngeal erythema] Neck: [No thyromegaly], [no cervical lymphadenopathy], [trachea midline], [ supple] Mouth: [no lip lesion], [mucus membranes moist], poor dentition Cardiovascular: [S1S2 reg], [no murmur], [positive posterior tibial pulse bilateral], [no edema], [capillary refill less than 2 seconds] Lungs: [CTA bilateral], [no rhonchi, no rales] , [no accessory muscle use] Abdominal: [soft], [ nontender to palpation], [no guarding], [no appreciable organomegaly], [normal bowel sounds] Ext: [no gross muscle atrophy], [muscle strength 5 out of 5 in all 4 extremities grossly], [no contractures], Neuro: [ CN II-XI grossly intact], [light touch intact all 4 extremities], [ finger to nose within normal limits], Psych: [Alert], [oriented], [appropriate affect] Results CBC & Chem 7: 01/18/18 09:02 01/18/18 09:02 Labs: Abnormal Lab Results - Last 24 Hours (Table) 01/17/18 01/18/18 01/18/18 Range/Units 15:39 09:02 09:02 WBC 12.5 H (3.8-10.6) k/uL Plt Count 625 H (150-450) k/uL Glucose 114 H (74-99) mg/dL Triglycerides 163 H (<150) mg/dL LDL Cholesterol, Calc 127 H (0-99) mg/dL HDL Cholesterol 32 L (40-60) mg/dL TSH 0.294 L (0.465-4.680) mIU/L Ur Amphetamines Screen Detected H (NotDetected) U Methamphetamines Scrn Detected H (NotDetected) U Marijuana (THC) Screen Detected H (NotDetected) Assessment and Plan Plan: HTN -Pt notes she is diet controlled and was given a medication to use prn -Normotensive, will monitor for now Active smoker -C/w Nicotine patch Depression/self-harm -Will defer to psychiatry service Hepatitis C -Patient advised on need and importance of outpatient f/u for Hep C Polysubstance abuse -Watch for signs of withdrawal DVT//GI proph -Ambulatory -No indication for GI proph Thank you for allowing us to participate in the care of this patient. We will follow peripherally. Do not hesitate to contact us with questions. Someone can be reached from the [facility] hospitalist group at all hours of the day at [phone].
[2018-01-18 18:37] LABS: Hemoglobin A1C 5.4 % (4.0-6.0)
[2018-01-18] MEDS: hydrOXYzine PAMOATE 25 MG CAP PO PRN (20:22)
[2018-01-19] MEDS: NICOTINE 21MG/24HR PATCH TRANSDERM SCH (08:37)
[2018-01-19] MEDS: OXcarbazepine 150 MG TAB PO SCH ×2 (08:38→21:00)
--- NOTE | 2018-01-19 09:32 | P.PN ---
Progress Note - Text Interval history: The patient is found in the [facility] he follows me to an interview room. She indicates she feels safe her mood is improved. She was able to speak with her child via phone yesterday. She anticipates her boyfriend will visit this evening. We discussed the Trileptal her questions were answered. We discussed that we will likely titrate the dose. We will consider adding the Zoloft back. She has been attending groups. Mental status exam: The patient is alert she is dressed in her own clothing hygiene grooming are good. Speech is fluent spontaneous nonpressured. She is pleasant and cooperative throughout the session. She denies having any acute suicidal ideation at this time. She is reporting no homicidal ideation intent or plan. She is reporting no auditory or visual hallucinations or any specific delusions. Insight and judgment improving. She demonstrates no verbal or physical aggressiveness. Affect is euthymic in appearance. Plan: The patient will continue on the Trileptal is written. We will monitor her for safety. She is encouraged to continue participating in the milieu. Vital signs reviewed. We will consider titrating that Trileptal further in restarting the Zoloft.
[2018-01-19] MEDS: hydrOXYzine PAMOATE 25 MG CAP PO PRN (20:58)
[2018-01-20 07:12] LABS: Appearance,Urine Cloudy (Clear); Bacteria,Urine Rare /hpf; Bilirubin,Urine Negative (Negative); Blood,Urine Negative (Negative); Color,Urine Light Yellow; Glucose,Urine (UA) Negative (Negative); Ketones,Urine Negative (Negative); Leukocyte Esterase,Urine Large (Negative); Mucus,Urine Rare /hpf; Nitrite,Urine Negative (Negative); Protein,Urine Negative (Negative); RBC,Urine 1 /hpf (0-5); Specific Gravity,Urine 1.007 (1.001-1.035); Squamous Epithelial Cell,Urine 3 /hpf (0-4); Urobilinogen,Urine <2.0 mg/dL (<2.0); WBC,Urine 25 /hpf (0-5)
--- NOTE | 2018-01-20 07:17 | P.PN ---
Progress Note - Text Interval history: The patient's found in her room she follows me to an interview room. She states that her mood is improving. Her visited last evening and that was a supportive visit. She indicates sleep is stable appetite stable she has been attending groups. We reviewed her psychotropic medications she continues to describe symptoms of anxiety. We discussed reinitiating the Zoloft in titrating the Trileptal further. He Mental status exam: The patient is alert she is dressed in her own clothing hygiene grooming are adequate. Speech is fluent spontaneous nonpressured. She reports that her mood is improving anxiety symptoms persist. She feels safe here in the hospital in terms of suicidal ideation. No homicidal ideation intent or plan no report of auditory or visual hallucinations or any specific delusions. She demonstrates no tangential thinking loose associations or flight of ideas. She does not appear hypomanic or manic. Insight and judgment improving. She is oriented to person place and date she demonstrates no verbal or physical aggressiveness. Plan: The patient will continue on Trileptal we will titrate the dose to 300 mg twice daily we will reinitiate Zoloft 50 mg daily. She is encouraged to continue participating in groups. Vital signs reviewed. We will continue to monitor for safety.
[2018-01-20] MEDS: SERTRALINE 50 MG TAB PO SCH (08:43)
[2018-01-20] MEDS: OXcarbazepine 300 MG TAB PO SCH ×2 (08:43→20:46)
[2018-01-20] MEDS: NICOTINE 21MG/24HR PATCH TRANSDERM SCH (08:43)
[2018-01-20 16:15] VITALS: BMI 22.5
[2018-01-20] MEDS: hydrOXYzine PAMOATE 25 MG CAP PO PRN (20:46)
[2018-01-21] MEDS: NICOTINE 21MG/24HR PATCH TRANSDERM SCH (08:24)
[2018-01-21] MEDS: OXcarbazepine 300 MG TAB PO SCH ×2 (08:24→20:29)
[2018-01-21] MEDS: SERTRALINE 50 MG TAB PO SCH (08:24)
--- NOTE | 2018-01-21 11:30 | P.PN ---
Progress Note - Text Interval history: The patient is found in group she follows me to an interview room. She reports that her mood is improving. She has no questions or concerns regarding her medication. We discussed having her boyfriend come up for a support meeting and she is agreeable. She slept last night she has been attending groups. Mental status exam: The patient is alert she presents with good hygiene grooming eye contact is appropriate. Speech is fluent nonpressured. She reports her mood is becoming more hopeful. She is reporting no acute suicidal ideation intent or plan and she feels safe in the hospital. No homicidal ideation intent or plan. She reports no auditory or visual hallucinations or any specific delusions or no observed evidence of psychosis. Thought process is linear and goal directed she demonstrates no evidence of hypomania or chase. She demonstrates no psychomotor agitation she seated calmly in the chair. Insight and judgment improving. Plan: The patient is clinically stabilizing. We will continue the medication as written. Social work will arrange a support meeting. We will anticipate discharging her tomorrow if clinically stable.
[2018-01-21] MEDS: hydrOXYzine PAMOATE 25 MG CAP PO PRN (20:29)
[2018-01-22 06:55] VITALS: TEMP 98
[2018-01-22] MEDS: SERTRALINE 50 MG TAB PO SCH (08:26)
[2018-01-22] MEDS: OXcarbazepine 300 MG TAB PO SCH (08:26)
[2018-01-22] MEDS: NICOTINE 21MG/24HR PATCH TRANSDERM SCH (08:26)
[2018-01-22 08:32] VITALS: BP 134/92; PULSE 104; RESP 18
--- NOTE | 2018-01-22 09:14 | P.DS ---
Providers Date of admission: 01/17/18 21:36 Expected date of discharge: 01/22/18 Attending physician: Ghassan Bradford Consults: 01/17/18 22:31 Consult Physician Routine Consulting Provider: Alex Mendieta Consult Reason/Comments: Medical Management Do you want consulting provider notified?: Yes Primary care physician: Stated None - Discharge Diagnosis(es) (1) Bipolar 2 disorder, major depressive episode Current Visit: Yes Status: Acute Priority: High (2) Generalized anxiety disorder Current Visit: Yes Status: Acute Priority: Medium (3) Cannabis use disorder, mild, abuse Current Visit: Yes Status: Acute Priority: Medium (4) Opioid use disorder Current Visit: Yes Status: Acute Priority: Low Hospital Course: Brief summary of admission note: This patient is a 37-year-old but female who was admitted to the mental health unit for worsening symptoms of depression and suicidal ideation. The patient reported a previous diagnosis of bipolar disorder and had endorsed numerous depressive episodes in the past. She described a history of hypomanic episodes. She felt depressed overwhelmed and was experiencing generalized symptoms of anxiety on a regular basis. She was recently here in the mental health unit but felt that the medication management was not helpful. She had just recently seen her outpatient psychiatrist as well. For full details please refer to my psychiatric evaluation dated 01/18/2018. Summary of hospital course: The patient was admitted to the mental health unit voluntarily. We reviewed her presenting symptoms and treatment options. We decided to continue the Trileptal and ultimately titrated the dose during the course of her stay. We reinitiated Zoloft 50 mg daily for depressive and anxiety symptoms. We used Vistaril 50 mg up to twice daily as needed for anxiety symptoms. The patient was pleasant cooperative she participated in the therapeutic milieu. She demonstrated no agitated behavior. She reported a progressive improvement of symptoms while here. She was seen by internal medicine for routine history and physical exam. She is scheduled to participate in a support meeting involving her boyfriend this morning prior to discharge. We discussed her use of substances. She has a long history of opioid use disorder but has been in remission from that substance. She has been using marijuana frequently and her urine drug screen was positive for methamphetamine. She states that she did not use methamphetamine intentionally and it must've been in the marijuana. We discussed the need for her to abstain from any substances and the possibility of attending inpatient chemical dependency treatment. She feels that is unnecessary. Mental status exam: The patient is alert she is a 37-year-old female appearing her stated age. Hygiene grooming are adequate. Speech is fluent. There is no pressured speech. She reports her mood is good. Affect is congruent to reported mood. She is able to demonstrate an appropriate range of expression. She is reporting no suicidal ideation intent or plan. She reports no homicidal ideation intent or plan. She has never made any comments about wanting to hurt her child. She endorses no auditory or visual hallucinations or any specific delusions. She demonstrates no observed evidence of psychosis. She demonstrates no tangential thinking loose associations or flight of ideas. She does not appear hypomanic or manic. Insight and judgment have improved. She is oriented to person place and date. She demonstrates future oriented thinking. Impressions 1. Bipolar 2 disorder most recent depressed, generalized anxiety disorder, cannabis use disorder, opioid use disorder in remission 2. Cluster B traits 3. Hepatitis C, 3 months Plan: The patient will be discharged from mental health unit today to return home residing with her boyfriend and son. She will continue on Trileptal 300 mg twice daily Zoloft 50 mg daily Vistaril 50 mg up to twice daily as needed. She is instructed to abstain from any use of alcohol marijuana or any illicit drug. We discussed the use of those substances can provoke her mood symptoms and elevate her safety risk. She does not wish to participate in inpatient chemical dependency treatment. There is no imminent safety risk she is appropriate for transition back to outpatient care. She is instructed to return to the hospital any acute safety concerns. Patient Condition at Discharge: Stable Plan - Discharge Summary Discharge Rx Participant: No New Discharge Prescriptions: New hydrOXYzine PAMOATE 50 mg PO BID PRN #30 capsule PRN Reason: Anxiety Nicotine 21Mg/24Hr Patch [Habitrol] 1 patch TRANSDERM DAILY #10 patch OXcarbazepine [Trileptal] 300 mg PO BID #60 tab Sertraline [Zoloft] 50 mg PO DAILY #30 tab Continue Medroxyprogesterone Acetate [Depo-Provera] 150 mg IM ONCE Discontinued OXcarbazepine [Trileptal] 150 mg PO BID lamoTRIgine [LaMICtal] 50 mg PO DAILY hydrOXYzine HCL [Atarax] 50 mg PO HS Pramipexole [Mirapex] 0.5 mg PO DAILY Paliperidone [Invega] 3 mg PO DAILY Discharge Medication List Medroxyprogesterone Acetate [Depo-Provera] 150 mg IM ONCE 01/17/18 [History] Nicotine 21Mg/24Hr Patch [Habitrol] 1 patch TRANSDERM DAILY #10 patch 01/22/18 [ Rx] OXcarbazepine [Trileptal] 300 mg PO BID #60 tab 01/22/18 [Rx] Sertraline [Zoloft] 50 mg PO DAILY #30 tab 01/22/18 [Rx] hydrOXYzine PAMOATE 50 mg PO BID PRN #30 capsule 01/22/18 [Rx] Follow up Appointment(s)/Referral(s): None,Stated [Primary Care Provider] - 1-2 days
[2018-01-22] MEDS: ACETAMINOPHEN TAB 325 MG TAB PO PRN (10:22)
== END 2018-01-22 12:30 | disposition home or self-care (01) | DRG 885 ==
LOC: EC 15:06 → 3MHU 21:36
PROVIDERS: ADMIT Psychiatry & Neurology Psychiatry; ATTEND Psychiatry & Neurology Psychiatry
DX: F31.81 Bipolar II disorder (principal); F17.210 Nicotine dependence, cigarettes, uncomplicated; B19.20 Unspecified viral hepatitis C without hepatic coma; F11.11 Opioid abuse, in remission; F41.1 Generalized anxiety disorder; I10 Essential (primary) hypertension; S81.811A Laceration without foreign body, right lower leg, initial encounter; X78.8XXA Intentional self-harm by other sharp object, initial encounter; Z79.899 Other long term (current) drug therapy; Z91.5 Personal history of self-harm; Z81.8 Family history of other mental and behavioral disorders; Z88.0 Allergy status to penicillin; Z79.3 Long term (current) use of hormonal contraceptives
CPT/HCPCS: 80053; 80061; 80306; 81001; 81025; 82075; 83036; 84443; 85025; 99285

== ENCOUNTER 2018-07-09 18:06 | Inpatient (IN) | payer MEDICAID, OTHER ==
[2018-07-09 20:33] LABS: Amphetamine Screen,Urine Not Detected (NotDetected); Barbiturate Screen,Urine Not Detected (NotDetected); Benzodiazepines Screen,Urine Detected (NotDetected); Cocaine Screen,Urine Not Detected (NotDetected); Methadone Screen, Urine Not Detected (NotDetected); Opiate Screen,Urine Not Detected (NotDetected); Oxycodone Screen, Urine Not Detected (NotDetected); Phencyclidine Screen,Urine Not Detected (NotDetected); Tricyclic Antidepressant,Urine Detected (NotDetected); Urn Cannabinoid Scrn Detected (NotDetected)
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
[2018-07-10 00:09] VITALS: BMI 21.9
[2018-07-10] MEDS ORDERED: MAG HYDROX/AL HYDROX/SIMETH 30 ML CUP PO PRN (00:36)
[2018-07-10] MEDS ORDERED: ZIPRASIDONE 20 MG VIAL IM PRN (00:36)
[2018-07-10] MEDS ORDERED: MAGNESIUM HYDROXIDE 2,400 MG/10 ML CUP PO PRN (00:36)
--- NOTE | 2018-07-10 07:05 | P.MDCNMH ---
History of Present Illness H&P Date: 07/10/18 Chief Complaint: suicidal ideation 37-year-old female with history of depression and bipolar disorder chronic bronchitis Patient reports that she's was doing well on Zoloft some medication changes was done over a month ago, she recently went into a manic episode of her bipolar disorder and now she was feeling depressed and having suicidal thoughts he wants planning on jumping from a car. She otherwise denies any physical complaints denies any fevers chills coughing shortness of breath chest pain. She reports history of chronic bronchitis for which she used "the blue" inhaler in the past however she ran out long time ago. The symptoms when she smokes she feels that she needs that puffer. otherwise denies any ER visits or hospitalization for any COPD exacerbations. Review of Systems Pertinent positives as noted in HPI. All other systems were reviewed and are negative Past Medical History Additional Past Medical History / Comment(s): chronic bronchitis, ?hep C History of Any Multi-Drug Resistant Organisms: None Reported Past Surgical History: Section Past Psychological History: Anxiety, Bipolar, Depression Smoking Status: Current every day smoker Past Alcohol Use History: Daily Past Drug Use History: None Reported, Opiates Additional Drug Use History / Comment(s): hx heroin; clean 2 years Medications and Allergies Home Medications Medication Instructions Recorded Confirmed Type OXcarbazepine [Trileptal] 300 mg PO BID #60 tab 01/22/18 07/10/18 Rx QUEtiapine [SEROquel] 300 mg PO HS 07/09/18 07/10/18 History Sertraline [Zoloft] 100 mg PO DAILY 07/09/18 07/10/18 History hydrOXYzine PAMOATE 50 mg PO TID PRN 07/09/18 07/10/18 History Allergies Allergy/AdvReac Type Severity Reaction Status Date / Time amoxicillin Allergy Unknown Verified 07/10/18 02:57 Penicillins Allergy Unknown Verified 07/10/18 02:57 Physical Exam Vitals: Vital Signs Temp Pulse Pulse Resp BP BP Pulse Ox 07/10/18 00:00 97.3 F L 74 18 117/76 97 07/09/18 23:32 98.0 F 80 18 138/88 98 07/09/18 19:05 98.2 F 84 18 146/109 98 Intake and Output 07/09/18 07/10/18 07/10/18 22:59 06:59 14:59 Other: Weight 56.699 kg Constitutional: No acute distress, conversant, pleasant Eyes: Anicteric sclerae, moist conjunctiva, no lid-lag Pupils equal round reactive to light ENMT: NC/AT Oropharynx clear, no erythema, or exudates Neck: Supple, FROM, no masses, or JVD No carotid bruits No thyromegaly Lungs: Clear to auscultation Clear to percussion Normal respiratory effort, no accessory muscle use Cardiovascular: Heart regular in rate and rhythm, No murmurs, gallops, or rubs No peripheral edema Abdominal: Soft Nontender, no guarding, rebound or rigidity Abdomen moving with respiration Normoactive bowel sounds No hepatomegaly, No splenomegaly No palpable mass No abdominal wall hernia noted Skin: Normal temperature, tone, texture, turgor No induration No subcutaneous nodules No rash, lesions No ulcers Extremities: No digital cyanosis No clubbing Pedal pulses intact and symmetrical Radial pulses intact and symmetrical No calf tenderness Psychiatric: Alert and oriented to person, place and time Appropriate affect poor judgment Neuro Muscles Strength 5/5 in all 4 extremities Sensation to light touch grossly present throughout Cranial nerves II-XII grossly intact No focal sensory deficits Lymphatics: no palpable cervical or supraclavicular , or inguinal lymph nodes Cranial Nerve Examination - Cranial Nerves Cranial Nerve II- Optic: Intact Cranial Nerve III- Oculomotor: Intact Cranial Nerve IV- Trochlear: Intact Cranial Nerve V- Trigeminal: Intact Cranial Nerve - Abducens: Intact Cranial Nerve VII- Facial: Intact Cranial Nerve VIII- Auditory: Intact Cranial Nerve IX- Glossopharyngeal: Intact Cranial Nerve X- Vagus: Intact Cranial Nerve XI- Accessory: Intact Cranial Nerve XII- Hypoglossal: Intact Results Labs: Abnormal Lab Results - Last 24 Hours (Table) 07/09/18 Range/Units 20:18 U Tricyclic Antidepress Detected H (NotDetected) U Benzodiazepines Scrn Detected H (NotDetected) U Marijuana (THC) Screen Detected H (NotDetected) Assessment and Plan Assessment: 37-year-old female with history of chronic bronchitis and bipolar disorder presented to hospital due to suicidal ideation admitted to mental health unit for further management medicine consulted for medical evaluation Plan: bipolar disorder Depression Suicidal ideation Anxiety Management per psych Chronic bronchitis Currently stable When necessary Jocelyne's Patient ambulatory low risk for DVT Thank you for allowing us to participate in the care of this patient. We will follow peripherally. Do not hesitate to contact us with questions. Someone can be reached from the [facility]Note 3] hospitalist group at all hours of the day at [phone].
[2018-07-10] MEDS: SERTRALINE 100 MG TAB PO SCH (08:50)
[2018-07-10] MEDS: hydrOXYzine PAMOATE 25 MG CAP PO PRN ×2 (08:51→16:38)
[2018-07-10] MEDS: ACETAMINOPHEN TAB 325 MG TAB PO PRN ×2 (08:51→21:32)
[2018-07-10] MEDS: NICOTINE 14MG/24HR PATCH TRANSDERM SCH (08:54)
[2018-07-10] MEDS ORDERED: OXcarbazepine 300 MG TAB PO SCH (09:00)
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
[2018-07-10] MEDS: LITHIUM CARBONATE 300 MG CAP PO SCH ×2 (16:36→21:32)
[2018-07-10] MEDS ORDERED: QUEtiapine 100 MG TAB PO SCH (21:00)
[2018-07-10] MEDS: QUEtiapine 200 MG TAB PO SCH (21:32)
--- NOTE | 2018-07-11 08:54 | P.PN ---
Progress Note - Text Interval history: The patient is found in the hallway she follows me to an interview room. She indicates that she slept better last night staff reported she slept 6 hours. Appetite stable. She states that she attended all but one group. She continues to have a depressed mood and feels overwhelmed at times she describes some continued racing thoughts. She does feel safe in the hospital. We reviewed her psychotropic medications her questions were answered. Mental status exam: The patient is alert she is a thin female she stressor own clothing. Eye contact is appropriate. She demonstrates hyperactive behavior as she seated in the chair. She has a rushed quality about her affect. In terms of suicidal ideation she states she feels safe in the hospital. She is reporting no thoughts of harming others. She is reporting no auditory or visual hallucinations or any specific delusions. Thought process can be circumstantial at times. She demonstrates no verbal or physical aggressiveness. She demonstrates no involuntary repetitive movements. Insight and judgment limited. Plan: The patient will continue on the lithium and started. We will need to give this time to reach steady state and we will draw a level. She is encouraged to continue participating in groups. She requires continued psychiatric hospitalization for safety reasons. Vital signs reviewed they're within normal limits.
[2018-07-11] MEDS: SERTRALINE 100 MG TAB PO SCH (08:59)
[2018-07-11] MEDS: NICOTINE 14MG/24HR PATCH TRANSDERM SCH (08:59)
[2018-07-11] MEDS: hydrOXYzine PAMOATE 25 MG CAP PO PRN (08:59)
[2018-07-11] MEDS: LITHIUM CARBONATE 300 MG CAP PO SCH ×3 (08:59→21:19)
[2018-07-11 11:44] LABS: Basophils # (A) 0.1 k/uL (0-0.2); Basophils % (A) 1 %; Eosinophils # (A) 0.3 k/uL (0-0.7); Eosinophils % (A) 3 %; HGB 13.7 gm/dL (11.4-16.0); Lymphocytes # (A) 2.2 k/uL (1.0-4.8); Lymphocytes % (A) 22 %; MCH 27.3 pg (25.0-35.0); MCHC 31.3 g/dL (31.0-37.0); MCV 87.5 fL (80.0-100.0); Monocytes # (A) 0.5 k/uL (0-1.0); Monocytes % (A) 5 %; Neutrophils # (A) 6.8 k/uL (1.3-7.7); Neutrophils % (A) 68 %; Platelet Count 295 k/uL (150-450); RBC 5.03 m/uL (3.80-5.40)
[2018-07-11 12:13] LABS: ALT 28 U/L (9-52); AST 29 U/L (14-36); Albumin 4.2 g/dL (3.5-5.0); Alkaline Phosphatase 66 U/L (38-126); Anion Gap 4 mmol/L; Blood Urea Nitrogen 13 mg/dL (7-17); Carbon Dioxide 31 mmol/L (22-30); Chloride 103 mmol/L (98-107); Cholesterol 190 mg/dL (<200); Glucose 76 mg/dL (74-99); HDL Cholesterol 53 mg/dL (40-60); LDL Cholesterol,Calculated 96 mg/dL (0-99); Potassium 5.4 mmol/L (3.5-5.1); Sodium 138 mmol/L (137-145); Total Bilirubin 0.3 mg/dL (0.2-1.3); Total Protein 7.5 g/dL (6.3-8.2); Triglycerides 205 mg/dL (<150)
[2018-07-11] MEDS: ACETAMINOPHEN TAB 325 MG TAB PO PRN (17:02)
[2018-07-11 17:23] LABS: Hemoglobin A1C 5.3 % (4.0-6.0)
[2018-07-11] MEDS: QUEtiapine 200 MG TAB PO SCH (21:19)
--- NOTE | 2018-07-12 08:43 | P.PN ---
Progress Note - Text Interval history: The patient is found in the dining room she follows me to an interview room. She indicates her mood is beginning to improve. She continues to feel depressed and anxious however. She states there was a significant period of time yesterday where she felt depressed. She did meet with her [facility] clinician and found that visit supportive. She was able to sleep last night. Appetite stable. She states she attended most groups yesterday. She discussed some strategies in terms of coping skills once discharged. Mental status exam: The patient is alert she is dressed in her own clothing hygiene grooming adequate. Speech is fluent spontaneous nonpressured. She continues to demonstrate some hyperactivity while seated in her chair. Thought process can be linear. She is circumstantial at times. She reports feeling safe in the hospital in terms of suicidal ideation. She is reporting no homicidal ideation intent or plan. She is endorsing auditory or visual hallucinations no specific delusions. Insight and judgment beginning to improve. Plan: The patient will continue on her current psychotropic medication. We will draw a lithium level Sunday morning. We will recheck BUN and creatinine. Her potassium was found to be elevated internal medicine is following that and her blood is being drawn again today. She is encouraged to fully participate in the milieu. Vital signs reviewed. If she demonstrates continued clinical improvement she may be appropriate for discharge as soon as Sunday.
[2018-07-12] MEDS: hydrOXYzine PAMOATE 25 MG CAP PO PRN (08:49)
[2018-07-12] MEDS: NICOTINE 14MG/24HR PATCH TRANSDERM SCH (08:49)
[2018-07-12] MEDS: LITHIUM CARBONATE 300 MG CAP PO SCH ×3 (08:49→21:18)
[2018-07-12] MEDS: SERTRALINE 100 MG TAB PO SCH (08:49)
[2018-07-12 09:18] LABS: Anion Gap 6 mmol/L; Blood Urea Nitrogen 14 mg/dL (7-17); Calcium 9.9 mg/dL (8.4-10.2); Carbon Dioxide 26 mmol/L (22-30); Chloride 106 mmol/L (98-107); Glucose 111 mg/dL (74-99); Potassium 4.4 mmol/L (3.5-5.1); Sodium 138 mmol/L (137-145)
[2018-07-12 16:56] LABS: Appearance,Urine Clear (Clear); Bilirubin,Urine Negative (Negative); Blood,Urine Negative (Negative); Color,Urine Yellow; Glucose,Urine (UA) Negative (Negative); Ketones,Urine Negative (Negative); Leukocyte Esterase,Urine Small (Negative); Nitrite,Urine Negative (Negative); PH, Urine 7.5 (5.0-8.0); Protein,Urine Negative (Negative); Specific Gravity,Urine 1.027 (1.001-1.035); Squamous Epithelial Cell,Urine 4 /hpf (0-4); Urobilinogen,Urine <2.0 mg/dL (<2.0); WBC,Urine 5 /hpf (0-5)
[2018-07-12] MEDS: QUEtiapine 200 MG TAB PO SCH (21:18)
[2018-07-12] MEDS: ACETAMINOPHEN TAB 325 MG TAB PO PRN (21:19)
[2018-07-13] MEDS: NICOTINE 14MG/24HR PATCH TRANSDERM SCH (09:03)
[2018-07-13] MEDS: ACETAMINOPHEN TAB 325 MG TAB PO PRN (09:04)
[2018-07-13] MEDS: SERTRALINE 100 MG TAB PO SCH (09:04)
[2018-07-13] MEDS: LITHIUM CARBONATE 300 MG CAP PO SCH ×3 (09:04→21:10)
--- NOTE | 2018-07-13 18:03 | P.PN ---
Progress Note - Text Progress Note Date: 07/13/18 IDENTIFICATION DATA: This patient is a 37-year-old but female who was admitted to the mental health unit for suicidal ideation, thoughts of self injury. She feels that her medications are not helping. Recent stressors include feeling harassed from her and having her child placed in foster care. The patient states that she continues to experience episodes of chase and episodes of depression. UDS positive for Marijuana and benzodiazipines. INTERVAL HISTORY: She stated no matter what you give el still anxious with jumping out of the skin feeling. She states vistaril is not helping her and asked is there anything else she could take instead. discussed about buspar and is willing to take it stating it works well for her. She states her anxiety worsens her depression. She reports going to most of the groups. She reports good sleep and appetite. MENTAL STATUS EXAMINATION: Patient appears stated age in fair grooming and hygiene. maintains intermittent eye contact. No abnormal movements noted. speech and thought process are linear and goal directed. mood is reported as better affect full range. Denies current auditory or visual hallucinations . denies paranoid ideations. The patient is alert and oriented 4 and in no apparent distress. Denies suicidal or homicidal ideation. insight and judgment are improving ASSESSMENT Bipolar 2 disorder most recent depressed, PLAN: continue [place], seroquel and zoloft. Will taper and discontinue vistaril as she says it is not helping her. Will start her on buspar 5mg po tid
[2018-07-13] MEDS: busPIRone HCl 5 MG TAB PO SCH (20:54)
[2018-07-13] MEDS: QUEtiapine 200 MG TAB PO SCH (20:54)
[2018-07-14] MEDS: NICOTINE 14MG/24HR PATCH TRANSDERM SCH (08:36)
[2018-07-14] MEDS: LITHIUM CARBONATE 300 MG CAP PO SCH ×4 (08:36→20:52)
[2018-07-14] MEDS: busPIRone HCl 5 MG TAB PO SCH ×3 (08:36→20:49)
[2018-07-14] MEDS: SERTRALINE 100 MG TAB PO SCH (08:36)
[2018-07-14] MEDS ORDERED: hydrOXYzine PAMOATE 25 MG CAP PO STA (14:19)
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
[2018-07-14] MEDS: QUEtiapine 200 MG TAB PO SCH (20:49)
[2018-07-14] MEDS ORDERED: busPIRone HCl 5 MG TAB PO STA (21:37)
[2018-07-14] MEDS: hydrOXYzine PAMOATE 25 MG CAP PO PRN (22:37)
[2018-07-14] MEDS: ACETAMINOPHEN TAB 325 MG TAB PO PRN (22:43)
[2018-07-15] MEDS: NICOTINE 14MG/24HR PATCH TRANSDERM SCH (07:55)
[2018-07-15] MEDS: LITHIUM CARBONATE 300 MG CAP PO SCH ×3 (07:56→20:38)
[2018-07-15] MEDS: hydrOXYzine PAMOATE 25 MG CAP PO PRN ×4 (07:57→20:37)
[2018-07-15] MEDS: busPIRone HCl 5 MG TAB PO SCH ×3 (07:58→20:38)
[2018-07-15 08:43] LABS: Blood Urea Nitrogen 16 mg/dL (7-17); Lithium 0.7 mmol/L
[2018-07-15] MEDS ORDERED: SERTRALINE 50 MG TAB PO SCH (09:00)
[2018-07-15] MEDS: ACETAMINOPHEN TAB 325 MG TAB PO PRN ×2 (09:17→16:41)
--- NOTE | 2018-07-15 09:51 | P.PN ---
Progress Note - Text Interval history: The patient is found in group she follows me to an interview room. She states that's her mood was quite poor over the weekend. She experienced significant anxiety. The covering psychiatrists increased her Zoloft and started her on BuSpar. The lab work is returned and her lithium level was appropriate at 0.7. The patient continues to attend groups. She states that she had supportive visits over the weekend. Mental status exam: The patient is alert she is dressed in her own clothing. She reports her mood is down and anxious today. She feels safe in the hospital. No homicidal thoughts. She endorses increased anxiety. She is reporting no auditory or visual hallucinations or any specific delusions. She is oriented to person place and date. She demonstrates no involuntary repetitive movements. Insight and judgment slowly improving. She has spontaneous speech that is nonpressured. She has had some chronic hyperactivity. Plan: The patient overall is stabilizing. We will anticipate discharging her tomorrow. We will titrate the Zoloft 150 mg daily. She has been recently started on BuSpar. [place] level was within normal limits. Vital signs reviewed they're within normal limits. I will discuss her progress during treatment team meeting.
[2018-07-15 12:29] VITALS: RESP 18
[2018-07-15] MEDS: QUEtiapine 200 MG TAB PO SCH (20:38)
[2018-07-16 06:51] VITALS: BP 118/82; PULSE 91; TEMP 98.5
[2018-07-16] MEDS: NICOTINE 14MG/24HR PATCH TRANSDERM SCH (08:12)
[2018-07-16] MEDS: busPIRone HCl 5 MG TAB PO SCH (08:13)
[2018-07-16] MEDS: LITHIUM CARBONATE 300 MG CAP PO SCH (08:13)
[2018-07-16] MEDS: hydrOXYzine PAMOATE 25 MG CAP PO PRN (08:32)
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
[2018-07-16] MEDS ORDERED: SERTRALINE 50 MG TAB PO SCH (09:00)
== END 2018-07-16 10:47 | disposition home or self-care (01) | DRG 885 ==
LOC: EC 18:06 → 3MHU 22:25
PROVIDERS: ADMIT Psychiatry & Neurology Psychiatry; ATTEND Psychiatry & Neurology Psychiatry
DX: F31.30 Bipolar disorder, current episode depressed, mild or moderate severity, unspecified (principal); R45.851 Suicidal ideations; F10.10 Alcohol abuse, uncomplicated; F11.11 Opioid abuse, in remission; F12.10 Cannabis abuse, uncomplicated; F17.210 Nicotine dependence, cigarettes, uncomplicated; F41.1 Generalized anxiety disorder; I10 Essential (primary) hypertension; Z79.899 Other long term (current) drug therapy; Z91.5 Personal history of self-harm; J42 Unspecified chronic bronchitis; Z88.0 Allergy status to penicillin
CPT/HCPCS: 80048; 80053; 80061; 80178; 80183; 80306; 81001; 81025; 82075; 82565; 83036; 84443; 84520; 85025; 99285

== ENCOUNTER 2019-05-03 14:56 | Emergency (ER) | payer OTHER ==
[2019-05-03 14:59] VITALS: BP 150/99; PULSE 88; RESP 18; TEMP 97.8
--- NOTE | 2019-05-03 15:18 | ED ---
Medical Clearance HPI - General Chief complaint: Medical Clearance Stated complaint: med refill Time Seen by Provider: 05/03/19 15:02 Source: patient, RN notes reviewed, old records reviewed Mode of arrival: ambulatory - History of Present Illness Initial comments: 38-year-old female with history of depression presenting for refill of her medications. She is out of 3 of her medications including Seroquel, Paxil, and BuSpar. She does have history of depression, she is not currently suicidal, she is been out of these medications for approximately 2 weeks and is having a dif ficult time finding primary care provider if she is new to the area. She has no physical complaints. Home medications: Previous Rx's Medication Instructions Recorded [place] Carbonate 300 mg PO TID #45 cap 07/16/18 Nicotine 14Mg/24Hr Patch [Habitrol] 1 patch TRANSDERM DAILY #14 patch 07/16/18 QUEtiapine [SEROquel] 200 mg PO HS #30 tab 07/16/18 Sertraline [Zoloft] 150 mg PO DAILY #45 tab 07/16/18 busPIRone HCl [Buspar] 5 mg PO TID #45 tab 07/16/18 hydrOXYzine PAMOATE 50 mg PO TID PRN #45 capsule 07/16/18 PARoxetine [Paxil] 20 mg PO DAILY #14 tab 05/03/19 QUEtiapine FUMARATE [QUEtiapine 200 mg PO DAILY #14 tab 05/03/19 FUMARATE ER] busPIRone HCL [Buspar] 30 mg PO BID #28 tab 05/03/19 Allergies/Adverse reactions: Allergies Allergy/AdvReac Type Severity Reaction Status Date / Time amoxicillin Allergy Unknown Verified 05/03/19 14:59 Penicillins Allergy Unknown Verified 05/03/19 14:59 Review of Systems ROS Statement: Those systems with pertinent positive or pertinent negative responses have been documented in the HPI. ROS Other: All systems not noted in ROS Statement are negative. Past Medical History Past Medical History: Hypertension Additional Past Medical History / Comment(s): chronic bronchitis, ?hep C History of Any Multi-Drug Resistant Organisms: None Reported Past Surgical History: Section Past Psychological History: Anxiety, Bipolar, Depression Smoking Status: Current every day smoker Past Alcohol Use History: Daily Past Drug Use History: Opiates General Exam Limitations: no limitations General appearance: alert, in no apparent distress Head exam: Present: atraumatic, normocephalic Eye exam: Present: normal appearance, PERRL ENT exam: Present: normal exam Neck exam: Present: normal inspection. Absent: meningismus Respiratory exam: Present: normal lung sounds bilaterally. Absent: respiratory distress, wheezes Cardiovascular Exam: Present: regular rate, normal rhythm GI/Abdominal exam: Present: soft. Absent: distended, tenderness, guarding Neurological exam: Present: alert, oriented X3 Psychiatric exam: Present: normal affect, normal mood. Absent: homicidal ideation, suicidal ideation Skin exam: Present: warm, dry, intact. Absent: cyanosis, diaphoretic Course Vital Signs 05/03/19 14:58 Temperature 97.8 F Pulse Rate 88 Respiratory 18 Rate Blood Pressure 150/99 O2 Sat by Pulse 98 Oximetry Medical Decision Making - Medical Decision Making 38-year-old female requesting medication refill. She is currently out of her Seroquel, Paxil, and BuSpar. I did refill these medications for 2 weeks as the patient will have a difficult time getting into primary care and community mental health due to the current shutdown associated with coronavirus. She is not suicidal or homicidal, she is simply requesting medication refill as she is out of his meds. Disposition Clinical Impression: Medication refill Disposition: HOME SELF-CARE Condition: Good Instructions (If sedation given, give patient instructions): Medicine Refill (ED) Prescriptions: busPIRone HCL [Buspar] 30 mg PO BID #28 tab PARoxetine [Paxil] 20 mg PO DAILY #14 tab QUEtiapine FUMARATE [QUEtiapine FUMARATE ER] 200 mg PO DAILY #14 tab Is patient prescribed a controlled substance at d/c from ED?: No Referrals: None,Stated [Primary Care Provider] - 1-2 days Meek Mae [STAFF PHYSICIAN] - 1-2 days Time of Disposition: 15:15
== END 2019-05-03 15:35 | disposition home or self-care (01) ==
LOC: EC 14:56
DX: Z76.0 Encounter for issue of repeat prescription (principal); F17.200 Nicotine dependence, unspecified, uncomplicated; Z88.0 Allergy status to penicillin
CPT/HCPCS: 99283

== ENCOUNTER 2020-05-19 14:00 | Emergency (ER) | payer OTHER ==
--- NOTE | 2020-05-19 17:59 | ED ---
URI HPI - General Source: patient Mode of arrival: ambulatory Limitations: no limitations <Kathy Lemus - Last Filed: 05/20/20 19:02> <Yuridia Meeks - Last Filed: 05/21/20 11:49> - General Chief Complaint: Upper Respiratory Infection Stated Complaint: Covid Exposure, Vomiting Time Seen by Provider: 05/19/20 17:19 - History of Present Illness Initial Comments: Patient is a 39-year-old female presenting to the emergency department requesting a Covid test. Patient states the last 4 days she's been having some nausea, increase in her cough, body aches and chills. Patient states she was exposed to Covid last week, her symptoms started about 4 days ago. She is currently 28-1/2 weeks . She denies any abdominal pain, no vaginal bleeding. Her has been uncomplicated thus far. She sees Dr. Monaco for OBGYN. She has no chest pain or shortness of breath, no difficulty in breathing, no further complaints at this time. Upon arrival to the ER, her vital signs are stable. (Kathy Lemus) - Related Data Previous Rx's Medication Instructions Recorded [place] Carbonate 300 mg PO TID #45 cap 07/16/18 Nicotine 14Mg/24Hr Patch [Habitrol] 1 patch TRANSDERM DAILY #14 patch 07/16/18 QUEtiapine [SEROquel] 200 mg PO HS #30 tab 07/16/18 Sertraline [Zoloft] 150 mg PO DAILY #45 tab 07/16/18 busPIRone HCl [Buspar] 5 mg PO TID #45 tab 07/16/18 hydrOXYzine pamoate [hydrOXYzine 50 mg PO TID PRN #45 capsule 07/16/18 PAMOATE] PARoxetine [Paxil] 20 mg PO DAILY #14 tab 05/03/19 QUEtiapine FUMARATE [QUEtiapine 200 mg PO DAILY #14 tab 05/03/19 FUMARATE ER] busPIRone HCL [Buspar] 30 mg PO BID #28 tab 05/03/19 Clindamycin HCl 300 mg PO Q8H 5 Days #15 cap 04/19/20 Allergies Allergy/AdvReac Type Severity Reaction Status Date / Time amoxicillin Allergy Unknown Verified 05/19/20 15:37 Penicillins Allergy Unknown Verified 05/19/20 15:37 Review of Systems ROS Other: All systems not noted in ROS Statement are negative. <Kathy Lemus - Last Filed: 05/20/20 19:02> ROS Other: All systems not noted in ROS Statement are negative. <Yuridia Meeks - Last Filed: 05/21/20 11:49> ROS Statement: Those systems with pertinent positive or pertinent negative responses have been documented in the HPI. Past Medical History Past Medical History: Hypertension Additional Past Medical History / Comment(s): chronic bronchitis, ?hep C History of Any Multi-Drug Resistant Organisms: None Reported Past Surgical History: Section Past Psychological History: Anxiety, Bipolar, Depression Smoking Status: Current every day smoker Past Alcohol Use History: None Reported Past Drug Use History: Opiates <Kathy Lemus - Last Filed: 05/20/20 19:02> General Exam Limitations: no limitations <Kathy Lemus - Last Filed: 05/20/20 19:02> - General Exam Comments Initial Comments: GENERAL: Patient is well-developed and well-nourished. Patient is nontoxic and in no acute distress. HEAD: Atraumatic, normocephalic. EYES: Pupils equal round and reactive to light, extraocular movements intact, sclera anicteric, conjunctiva are normal. Eyelids were unremarkable. ENT: TMs normal, nares patent, oropharynx clear without exudates. Moist mucous membranes. NECK: Normal range of motion, supple without lymphadenopathy or JVD. LUNGS: Unlabored respirations. Breath sounds clear to auscultation bilaterally and equal. No wheezes rales or rhonchi. HEART: Regular rate and rhythm without murmurs, rubs or gallops. ABDOMEN: Soft, nontender, normoactive bowel sounds. No guarding, no rebound. No masses appreciated. : Deferred MUSCULOSKELETAL: Normal extremities with adequate strength and normal range of motion, no pitting or edema. No clubbing or cyanosis. NEUROLOGICAL: Patient is alert and oriented x 3. Motor and sensory are also intact. Cranial nerves II through XII grossly intact. Symmetrical smile. Normal speech, normal gait. PSYCH: Normal mood, normal affect. SKIN: Warm, Dry, normal turgor, no rashes or lesions noted. (Kathy Lemus) Course Vital Signs 05/19/20 05/19/20 15:35 18:02 Temperature 97.9 F 98.7 F Pulse Rate 86 85 Respiratory 19 18 Rate Blood Pressure 122/80 132/97 O2 Sat by Pulse 100 100 Oximetry Medical Decision Making <Kathy Lemus - Last Filed: 05/20/20 19:02> <Yuridia Meeks - Last Filed: 05/21/20 11:49> - Medical Decision Making Patient is a 39-year-old female here requesting a Covid test. She states she was exposed to Covid last week and started having some symptoms 4 days ago. She is currently 20 half weeks . She's had no abdominal pain or vaginal bleeding. Patient's rapid Covid test is positive today. I did discuss these findings with her. Patient is requesting a work note. That was given. She is stable for discharge. She can follow up with her CHILDR[facility]'S CHO[facility] DIRECTOR. She can take Tylenol for any symptoms. She is in agreement with this plan of care and is stable for discharge. Return parameters were discussed with the patient she verbalized understanding. Case discussed with Dr. Meeks. (Kathy Lemus) I was available for consultation in the emergency department. The history and physical exam were done by the midlevel provider. I was consulted for this patients care. I reviewed the case with the midlevel provider and based on their presentation of the patient, I agree with the assessment, medical decision making and plan of care as documented. Chart was dictated using [employer] dictation software. Attempts were made to correct any dictation errors however some typographical errors may persist. Patient was seen during a national state of emergency due to the Covid-19 pandemic. (Yuridia Meeks) - Lab Data Lab Results 05/19/20 Range/Units 15:39 Coronavirus (PCR) Detected A (Not Detectd) Disposition Is patient prescribed a controlled substance at d/c from ED?: No <Kathy Lemus - Last Filed: 05/20/20 19:02> <Yuridia Meeks - Last Filed: 05/21/20 11:49> Clinical Impression: COVID-19 Disposition: HOME SELF-CARE Condition: Stable Instructions (If sedation given, give patient instructions): Coronavirus Disease 2019 (COVID-19) Additional Instructions: Please return to the Emergency Department if symptoms worsen or any other concerns. Rapid test is positive today. Quarantine for 10 days from your symptom onset. May return to work on 05/26/2020. May take Tylenol for any symptoms, fever. Follow-up with your CHILDR[facility]'S CHOIR DIRECTOR. Referrals: None,Stated [Primary Care Provider] - 1-2 days
[2020-05-19 18:06] VITALS: BP 132/97; PULSE 85; RESP 18; TEMP 98.7
== END 2020-05-19 18:08 | disposition home or self-care (01) ==
LOC: EC 14:00
DX: O98.513 Other viral diseases complicating pregnancy, third trimester (principal); U07.1 COVID-19; O09.513 Supervision of elderly primigravida, third trimester; O99.343 Other mental disorders complicating pregnancy, third trimester; O10.913 Unspecified pre-existing hypertension complicating pregnancy, third trimester; F32.9 Major depressive disorder, single episode, unspecified; F41.9 Anxiety disorder, unspecified; O99.333 Smoking (tobacco) complicating pregnancy, third trimester; F17.200 Nicotine dependence, unspecified, uncomplicated; Z3A.28 28 weeks gestation of pregnancy
CPT/HCPCS: 87635; 99284

== ENCOUNTER 2021-07-16 05:25 | Emergency (ER) | payer OTHER ==
[2021-07-16 05:46] VITALS: BP 132/92; PULSE 100; RESP 18
--- NOTE | 2021-07-16 07:39 | ED ---
General Adult HPI - General Chief complaint: Alcohol Stated complaint: ETOH Time Seen by Provider: 07/16/21 05:39 Source: patient, EMS Mode of arrival: EMS Limitations: no limitations - History of Present Illness Initial comments: This patient is a 40-year-old woman brought by ambulance to be evaluated for suspected head injury. The EMS personnel had been called to a vehicle that was stopped on the right side of . The patient had reportedly had a ground-level fall and was being transported by a friend who subsequently decided that the patient should be driven by ambulance instead. The patient denies having any injury or as a result of the fall and states that she does not need to be seen here. She does admit to having "a few drinks". Patient denies any other injuries. She is staying that she has changed her mind about being seen here and wishes to just go home instead. Onset/Timin -: hour(s) Location: head Severity scale (1-10): 0 Consistency: now resolved Improves with: none Worsens with: none Associated Symptoms: denies other symptoms Treatments Prior to Arrival: none - Related Data Previous Rx's Medication Instructions Recorded [place] Carbonate 300 mg PO TID #45 cap 07/16/18 Nicotine 14Mg/24Hr Patch [Habitrol] 1 patch TRANSDERM DAILY #14 patch 07/16/18 QUEtiapine [SEROquel] 200 mg PO HS #30 tab 07/16/18 Sertraline [Zoloft] 150 mg PO DAILY #45 tab 07/16/18 busPIRone HCl [Buspar] 5 mg PO TID #45 tab 07/16/18 hydrOXYzine pamoate [hydrOXYzine 50 mg PO TID PRN #45 capsule 07/16/18 PAMOATE] PARoxetine [Paxil] 20 mg PO DAILY #14 tab 05/03/19 QUEtiapine FUMARATE [QUEtiapine 200 mg PO DAILY #14 tab 05/03/19 FUMARATE ER] busPIRone HCL [Buspar] 30 mg PO BID #28 tab 05/03/19 Clindamycin HCl 300 mg PO Q8H 5 Days #15 cap 04/19/20 Allergies Allergy/AdvReac Type Severity Reaction Status Date / Time amoxicillin Allergy Unknown Verified 07/16/21 05:46 Penicillins Allergy Unknown Verified 07/16/21 05:46 Review of Systems ROS Statement: Those systems with pertinent positive or pertinent negative responses have been documented in the HPI. ROS Other: All systems not noted in ROS Statement are negative. Constitutional: Denies: fever, chills Respiratory: Denies: cough, dyspnea Cardiovascular: Denies: chest pain, palpitations, edema, syncope Gastrointestinal: Denies: abdominal pain, vomiting, diarrhea Genitourinary: Denies: dysuria, frequency Musculoskeletal: Denies: back pain Skin: Denies: lesions Neurological: Denies: headache, weakness, confusion Hematological/Lymphatic: Denies: easy bleeding Past Medical History Past Medical History: Hypertension Additional Past Medical History / Comment(s): chronic bronchitis, ?hep C History of Any Multi-Drug Resistant Organisms: None Reported Past Surgical History: Section Past Psychological History: Anxiety, Bipolar, Depression Smoking Status: Current every day smoker Past Alcohol Use History: None Reported Past Drug Use History: Opiates General Exam Limitations: no limitations General appearance: alert, in no apparent distress Head exam: Present: atraumatic, normocephalic Eye exam: Present: normal appearance, PERRL, EOMI. Absent: scleral icterus, conjunctival injection, nystagmus ENT exam: Present: normal oropharynx Neck exam: Present: normal inspection, full ROM. Absent: tenderness Respiratory exam: Present: normal lung sounds bilaterally. Absent: respiratory distress, wheezes, rales, rhonchi, stridor, chest wall tenderness Cardiovascular Exam: Present: regular rate, normal rhythm, normal heart sounds. Absent: systolic murmur, diastolic murmur, rubs, gallop GI/Abdominal exam: Present: soft. Absent: distended, tenderness, guarding, rebound, rigid Extremities exam: Present: normal inspection, normal capillary refill Back exam: Present: normal inspection. Absent: vertebral tenderness Neurological exam: Present: alert, oriented X3, CN II-XII intact. Absent: motor sensory deficit Psychiatric exam: Present: normal affect, normal mood. Absent: homicidal ideation, suicidal ideation Skin exam: Present: warm, dry, intact, normal color. Absent: rash Course Vital Signs 07/16/21 05:30 Pulse Rate 100 Respiratory 18 Rate Blood Pressure 132/92 O2 Sat by Pulse 95 Oximetry Medical Decision Making - Medical Decision Making Patient is 40-year-old woman who was initially brought to have evaluation for ground-level fall. She declines to have further evaluation. There is no evidence of trauma on head examination. The patient is exhibiting normal judgment. Patient gait stable and appears able to decide to go home and leave without representing danger to herself. Disposition Clinical Impression: Fall Disposition: HOME SELF-CARE Condition: Good Is patient prescribed a controlled substance at d/c from ED?: No Referrals: None,Stated [Primary Care Provider] - 1-2 days
== END 2021-07-16 05:52 | disposition home or self-care (01) ==
LOC: EC 05:25
DX: Z04.3 Encounter for examination and observation following other accident (principal); I10 Essential (primary) hypertension; F17.200 Nicotine dependence, unspecified, uncomplicated; Z79.899 Other long term (current) drug therapy; Z88.0 Allergy status to penicillin
CPT/HCPCS: 99283

== ENCOUNTER 2021-07-19 20:50 | Emergency (ER) | payer OTHER ==
[2021-07-19 21:06] VITALS: BP 151/110; PULSE 120; RESP 16; TEMP 98.3
[2021-07-19] MEDS ORDERED: OLANZapine ODT 10 MG TAB PO STA (22:12)
--- NOTE | 2021-07-19 22:25 | ED ---
Psych HPI - General Chief Complaint: Psychiatric Symptoms Stated Complaint: Mental health eval Time Seen by Provider: 07/19/21 21:17 Source: patient Mode of arrival: ambulatory - History of Present Illness Initial Comments: This patient is a 40-year-old woman with history of bipolar disorder who presents with complaint that her symptoms are flaring and she is becoming manic. Patient states she has been off of her medication for number of months. She states that over the past day or 2 she has not been sleeping. She is having racing thoughts. She has had some thoughts of self-harm. MD Complaint: suicidal ideation, other -: days(s) Associated Psychiatric Symptoms: suicidal ideation, racing thoughts Quality: getting worse Improves With: none Worsens With: none Context: not taking psychiatric medications Associated Symptoms: denies other symptoms - Related Data Home Medications Medication Instructions Recorded Confirmed [place] Carbonate 600 mg PO DIRECTED 07/19/21 07/19/21 Sertraline [Zoloft] 200 mg PO DIRECTED 07/19/21 07/19/21 busPIRone HCL [Buspar] 30 mg PO DIRECTED 07/19/21 07/19/21 Allergies Allergy/AdvReac Type Severity Reaction Status Date / Time amoxicillin Allergy Swelling Verified 07/19/21 22:42 and Hives all over Penicillins Allergy Swelling Verified 07/19/21 22:42 and Hives all over Review of Systems ROS Statement: Those systems with pertinent positive or pertinent negative responses have been documented in the HPI. ROS Other: All systems not noted in ROS Statement are negative. Constitutional: Denies: fever, chills Eyes: Denies: vision change Respiratory: Denies: cough, dyspnea Cardiovascular: Denies: chest pain, edema Gastrointestinal: Denies: abdominal pain, vomiting, diarrhea Genitourinary: Denies: dysuria, hematuria Musculoskeletal: Denies: back pain Skin: Denies: rash Neurological: Denies: headache Psychiatric: Reports: depression, auditory hallucinations, suicidal thoughts. Denies: visual hallucinations, homicidal thoughts Past Medical History Past Medical History: Hypertension Additional Past Medical History / Comment(s): chronic bronchitis, ?hep C History of Any Multi-Drug Resistant Organisms: None Reported Past Surgical History: Section Past Psychological History: Anxiety, Bipolar, Depression Smoking Status: Current every day smoker Past Alcohol Use History: None Reported Past Drug Use History: Opiates General Exam Limitations: no limitations General appearance: alert, in no apparent distress Head exam: Present: atraumatic, normocephalic Eye exam: Present: normal appearance. Absent: scleral icterus, conjunctival injection Neck exam: Present: normal inspection Respiratory exam: Present: normal lung sounds bilaterally. Absent: respiratory distress, wheezes, rales, rhonchi, stridor Cardiovascular Exam: Present: regular rate, normal rhythm, normal heart sounds. Absent: systolic murmur, diastolic murmur, rubs, gallop GI/Abdominal exam: Present: soft. Absent: distended, tenderness, guarding, rebound, rigid, mass Extremities exam: Present: normal inspection, normal capillary refill. Absent: pedal edema, calf tenderness Back exam: Present: normal inspection. Absent: CVA tenderness (R), CVA tenderness (L) Neurological exam: Present: alert Psychiatric exam: Present: manic, suicidal ideation. Absent: depressed, agitated, anxious, flat affect, homicidal ideation Skin exam: Present: warm, dry, intact, normal color. Absent: rash Course Vital Signs 07/19/21 21:00 Temperature 98.3 F Pulse Rate 120 H Respiratory 16 Rate Blood Pressure 151/110 O2 Sat by Pulse 98 Oximetry Medical Decision Making - Lab Data Lab Results 07/19/21 Range/Units 22:16 Urine Opiates Screen Not Detected (NotDetected) Ur Oxycodone Screen Not Detected (NotDetected) Urine Methadone Screen Not Detected (NotDetected) Ur Propoxyphene Screen Not Detected (NotDetected) Ur Barbiturates Screen Not Detected (NotDetected) U Tricyclic Antidepress Not Detected (NotDetected) Ur Phencyclidine Scrn Not Detected (NotDetected) Ur Amphetamines Screen Not Detected (NotDetected) U Methamphetamines Scrn Not Detected (NotDetected) U Benzodiazepines Scrn Detected H (NotDetected) Urine Cocaine Screen Not Detected (NotDetected) U Marijuana (THC) Screen Detected H (NotDetected) Disposition Clinical Impression: Mood disorder Disposition: HOME SELF-CARE Condition: Good Instructions (If sedation given, give patient instructions): Mood Disorders (ED) Is patient prescribed a controlled substance at d/c from ED?: No Referrals: None,Stated [Primary Care Provider] - 1-2 days
[2021-07-19 23:01] LABS: Urn Cannabinoid Scrn Detected (NotDetected)
[2021-07-19 23:02] LABS: Amphetamine Screen,Urine Not Detected (NotDetected); Barbiturate Screen,Urine Not Detected (NotDetected); Benzodiazepines Screen,Urine Detected (NotDetected); Cocaine Screen,Urine Not Detected (NotDetected); Methadone Screen, Urine Not Detected (NotDetected); Opiate Screen,Urine Not Detected (NotDetected); Oxycodone Screen, Urine Not Detected (NotDetected); Phencyclidine Screen,Urine Not Detected (NotDetected); Tricyclic Antidepressant,Urine Not Detected (NotDetected)
== END 2021-07-20 00:23 | disposition home or self-care (01) ==
LOC: EC 20:50
DX: F39 Unspecified mood [affective] disorder (principal); I10 Essential (primary) hypertension; F31.9 Bipolar disorder, unspecified; F41.9 Anxiety disorder, unspecified; F17.200 Nicotine dependence, unspecified, uncomplicated; F11.90 Opioid use, unspecified, uncomplicated
CPT/HCPCS: 80306; 82075; 99284

== ENCOUNTER 2021-07-21 09:33 | Inpatient (IN) | payer MEDICAID, OTHER ==
[2021-07-21 11:03] LABS: Amphetamine Screen,Urine Not Detected (NotDetected); Barbiturate Screen,Urine Not Detected (NotDetected); Benzodiazepines Screen,Urine Not Detected (NotDetected); Cocaine Screen,Urine Not Detected (NotDetected); Methadone Screen, Urine Not Detected (NotDetected); Opiate Screen,Urine Not Detected (NotDetected); Oxycodone Screen, Urine Not Detected (NotDetected); Phencyclidine Screen,Urine Not Detected (NotDetected); Tricyclic Antidepressant,Urine Not Detected (NotDetected); Urn Cannabinoid Scrn Detected (NotDetected)
--- NOTE | 2021-07-21 12:12 | ED ---
Psych HPI - General Source: patient, RN notes reviewed Mode of arrival: ambulatory Limitations: no limitations <Alfred Masterson - Last Filed: 07/21/21 15:16> <Derrick Nelson - Last Filed: 07/21/21 15:55> - General Chief Complaint: Psychiatric Symptoms Stated Complaint: mental health Time Seen by Provider: 07/21/21 09:47 - History of Present Illness Initial Comments: 41-year-old female presents emergency Department for psychiatric treatment. Patient states that she is currently manic has been off her medications. She's been attempting to get back and [facility]. 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 Last drink was on Sunday. Patient also admits to using large amount of marijuana to try to help her manic state states he was unable to sleep. Patient has had some intermittent suicidal ideation. (Alfred Masterson) - Related Data Home Medications Medication Instructions Recorded Confirmed [place] Carbonate 600 mg PO DIRECTED 07/19/21 07/21/21 Sertraline [Zoloft] 200 mg PO DIRECTED 07/19/21 07/21/21 busPIRone HCL [Buspar] 30 mg PO DIRECTED 07/19/21 07/21/21 Allergies Allergy/AdvReac Type Severity Reaction Status Date / Time amoxicillin Allergy Swelling Verified 07/21/21 11:21 and Hives all over Penicillins Allergy Swelling Verified 07/21/21 11:21 and Hives all over Review of Systems ROS Other: All systems not noted in ROS Statement are negative. <Alfred Masterson - Last Filed: 07/21/21 15:16> ROS Other: All systems not noted in ROS Statement are negative. <Derrick Nelson - Last Filed: 07/21/21 15:55> ROS Statement: Those systems with pertinent positive or pertinent negative responses have been documented in the HPI. Past Medical History Past Medical History: Hypertension Additional Past Medical History / Comment(s): chronic bronchitis, ?hep C History of Any Multi-Drug Resistant Organisms: None Reported Past Surgical History: Section Past Psychological History: Anxiety, Bipolar, Depression Smoking Status: Current every day smoker Past Alcohol Use History: None Reported Past Drug Use History: Opiates <Alfred Masterson - Last Filed: 07/21/21 15:16> General Exam Limitations: no limitations General appearance: alert, in no apparent distress, anxious Head exam: Present: atraumatic, normocephalic, normal inspection Eye exam: Present: normal appearance, PERRL, EOMI. Absent: scleral icterus, conjunctival injection, periorbital swelling ENT exam: Present: normal exam, normal oropharynx, mucous membranes moist Neck exam: Present: normal inspection, full ROM. Absent: tenderness, meningismus, lymphadenopathy Respiratory exam: Present: normal lung sounds bilaterally. Absent: respiratory distress, wheezes, rales, rhonchi, stridor Cardiovascular Exam: Present: normal rhythm, tachycardia, normal heart sounds. Absent: systolic murmur, diastolic murmur, rubs, gallop, clicks Neurological exam: Present: alert, oriented X3, CN II-XII intact Psychiatric exam: Present: anxious Skin exam: Present: warm, dry, intact, normal color. Absent: rash <Alfred Masterson - Last Filed: 07/21/21 15:16> Course Vital Signs 07/21/21 09:41 Temperature 98.5 F Pulse Rate 116 H Respiratory 15 Rate Blood Pressure 140/96 O2 Sat by Pulse 97 Oximetry Medical Decision Making - Lab Data Lab Results 07/21/21 07/21/21 Range/Units 10:10 11:58 Urine Opiates Screen Not Detected (NotDetected) Ur Oxycodone Screen Not Detected (NotDetected) Urine Methadone Screen Not Detected (NotDetected) Ur Propoxyphene Screen Not Detected (NotDetected) Ur Barbiturates Screen Not Detected (NotDetected) U Tricyclic Antidepress Not Detected (NotDetected) Ur Phencyclidine Scrn Not Detected (NotDetected) Ur Amphetamines Screen Not Detected (NotDetected) U Methamphetamines Scrn Not Detected (NotDetected) U Benzodiazepines Scrn Not Detected (NotDetected) Urine Cocaine Screen Not Detected (NotDetected) U Marijuana (THC) Screen Detected H (NotDetected) Coronavirus (PCR) Not Detected (Not Detectd) Disposition Time of Disposition: 15:17 <Alfred Masterson - Last Filed: 07/21/21 15:16> <Derrick Nelson - Last Filed: 07/21/21 15:55> Clinical Impression: Cannabis use disorder, mild, abuse, Alcohol use disorder, Bipolar disorder Disposition: TRANSFER TO PSYCH HOSP/UNIT Condition: Fair Referrals: None,Stated [Primary Care Provider] - 1-2 days
[2021-07-21] MEDS ORDERED: NICOTINE 21MG/24HR PATCH TRANSDERM STA (17:53)
[2021-07-21] MEDS ORDERED: LORazepam 1 MG TAB PO PRN (18:58)
[2021-07-21] MEDS ORDERED: MAGNESIUM HYDROXIDE 2,400 MG/10 ML CUP PO PRN (18:58)
[2021-07-21] MEDS ORDERED: MAG HYDROX/AL HYDROX/SIMETH 30 ML CUP PO PRN (18:58)
[2021-07-21] MEDS ORDERED: HALOPERIDOL LACTATE 5 MG/ML 1 ML VIAL IM PRN (18:58)
[2021-07-21] MEDS ORDERED: haloperidoL 5 MG TAB PO PRN (19:10)
[2021-07-21] MEDS ORDERED: LORazepam 2 MG/ML INJ IM PRN (19:10)
[2021-07-21] MEDS ORDERED: QUEtiapine 50 MG TAB PO PRN (19:11)
[2021-07-21] MEDS: ACETAMINOPHEN TAB 325 MG TAB PO PRN (21:05)
[2021-07-21] MEDS: busPIRone HCl 10 MG TAB PO SCH (21:07)
[2021-07-21] MEDS: LITHIUM CARBONATE 300 MG CAP PO SCH (21:07)
[2021-07-21 21:27] VITALS: RESP 18
--- NOTE | 2021-07-22 00:04 | P.CONS ---
History of Present Illness - Reason for Consult Consult date: 07/21/21 - History of Present Illness The patient is a 41-year-old female with a PMH of bipolar disorder presented to the emergency room for manic symptoms. The patient was admitted to the mental health unit when she was seen and evaluated. Patient reports that she has been struggling with her bipolar disorder for the past several months, and that she has been attempting to maintain her current employment but has been struggling due to her manic episodes. She reports trying to get back into [facility] without success. Also reports occasional depression with suicidal ideation. She denied any physical complaints however. Denied experiencing chest discomfort, shortness of breath, fever, chills, cough, nausea, vomiting, abdominal pain, diarrhea. Reports smoking 1 pack of cigarettes daily and also using recreational marijuana and Kratom. Review of systems: Pertinent positives and negatives as discussed in HPI, a complete review of systems was performed and all other systems are negative. Physical examination: General: non toxic, no distress, appears at stated age, normal weight Derm: no unusual rashes/lesions, warm Head: atraumatic, normocephalic, symmetric Eyes: EOMI, no lid lag, anicteric sclera, pupils equal round reactive to light ENT: Nose and ears atraumatic Neck: No cervical lymphadenopathy, trachea midline, supple Mouth: no lip lesion, mucus membranes moist Cardiovascular: S1S2 reg, no murmur, positive dorsalis pedis pulse bilateral, no edema Lungs: CTA bilateral, no rhonchi, no rales, no accessory muscle use Abdominal: soft, nontender to palpation, no guarding Ext: muscle strength 5 out of 5 in all 4 extremities grossly, no gross muscle atrophy, no contractures, Neuro: CN II-XI grossly intact, no gross focal neuro deficits Psych: Alert, oriented, appropriate affect Assessment/plan Polysubstance abuse -Advised on the importance of cessation Bipolar disorder -As per psychiatry Past Medical History Past Medical History: Hypertension Additional Past Medical History / Comment(s): chronic bronchitis, ?hep C History of Any Multi-Drug Resistant Organisms: None Reported Past Surgical History: Section Past Psychological History: Anxiety, Bipolar, Depression Smoking Status: Current every day smoker Past Alcohol Use History: None Reported Past Drug Use History: Opiates - Past Family History Father Family Medical History: Liver Disease Medications and Allergies Home Medications Medication Instructions Recorded Confirmed Type [place] Carbonate 600 mg PO DIRECTED 07/19/21 07/21/21 History Sertraline [Zoloft] 200 mg PO DIRECTED 07/19/21 07/21/21 History busPIRone HCL [Buspar] 30 mg PO DIRECTED 07/19/21 07/21/21 History Allergies Allergy/AdvReac Type Severity Reaction Status Date / Time amoxicillin Allergy Swelling Verified 07/21/21 11:21 and Hives all over Penicillins Allergy Swelling Verified 07/21/21 11:21 and Hives all over Physical Exam Vitals: Vital Signs Temp Pulse Resp BP Pulse Ox 07/21/21 17:14 78 16 109/72 98 07/21/21 09:41 98.5 F 116 H 15 140/96 97 Intake and Output 07/21/21 07/21/21 07/21/21 06:59 14:59 22:59 Other: Weight 57 kg Results Labs: Abnormal Lab Results - Last 24 Hours (Table) 07/21/21 Range/Units 10:10 U Marijuana (THC) Screen Detected H (NotDetected)
[2021-07-22] MEDS: NICOTINE 21MG/24HR PATCH TRANSDERM SCH (08:29)
[2021-07-22] MEDS: busPIRone HCl 10 MG TAB PO SCH ×2 (08:30→20:29)
[2021-07-22] MEDS: LITHIUM CARBONATE 300 MG CAP PO SCH ×2 (08:30→20:29)
[2021-07-22] MEDS: SERTRALINE 100 MG TAB PO SCH (08:30)
[2021-07-22] MEDS: ACETAMINOPHEN TAB 325 MG TAB PO PRN (08:31)
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
[2021-07-23 07:01] VITALS: TEMP 98
[2021-07-23 08:19] LABS: Basophils # (A) 0.1 k/uL (0-0.2); Basophils % (A) 1 %; Eosinophils # (A) 0.4 k/uL (0-0.7); Eosinophils % (A) 5 %; HCT 45.5 % (34.0-46.0); HGB 13.8 gm/dL (11.4-16.0); Lymphocytes # (A) 2.2 k/uL (1.0-4.8); Lymphocytes % (A) 30 %; MCH 28.1 pg (25.0-35.0); MCHC 30.4 g/dL (31.0-37.0); MCV 92.2 fL (80.0-100.0); Mean Platelet Volume 8.1; Monocytes # (A) 0.5 k/uL (0-1.0); Monocytes % (A) 7 %; Neutrophils # (A) 4.3 k/uL (1.3-7.7); Neutrophils % (A) 56 %; Platelet Count 262 k/uL (150-450); RBC 4.94 m/uL (3.80-5.40); RDW 13.3 % (11.5-15.5); WBC 7.6 k/uL (3.8-10.6)
[2021-07-23] MEDS: SERTRALINE 100 MG TAB PO SCH (08:20)
[2021-07-23] MEDS: LITHIUM CARBONATE 300 MG CAP PO SCH ×2 (08:20→20:47)
[2021-07-23] MEDS: busPIRone HCl 10 MG TAB PO SCH ×2 (08:20→20:47)
[2021-07-23] MEDS: NICOTINE 21MG/24HR PATCH TRANSDERM SCH (08:20)
[2021-07-23 08:39] LABS: ALT 11 U/L (4-34); AST 19 U/L (14-36); African American GFR (CKD) >90 (>60 ml/min/1.73 sqM); Albumin 4.4 g/dL (3.5-5.0); Alkaline Phosphatase 52 U/L (38-126); Anion Gap 7 mmol/L; Blood Urea Nitrogen 15 mg/dL (7-17); Calcium 9.4 mg/dL (8.4-10.2); Carbon Dioxide 27 mmol/L (22-30); Chloride 105 mmol/L (98-107); Glucose 91 mg/dL (74-99); Non-African American GFR(CKD) >90 (>60 ml/min/1.73 sqM); Potassium 5.1 mmol/L (3.5-5.1); Sodium 139 mmol/L (137-145); Total Bilirubin 0.2 mg/dL (0.2-1.3); Total Protein 7.3 g/dL (6.3-8.2)
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
[2021-07-23 11:38] LABS: Chol/HDL Ratio 3.62 Ratio; LDL Cholesterol,Calculated 123.8 mg/dL (0.0-131.0)
[2021-07-23] MEDS: ACETAMINOPHEN TAB 325 MG TAB PO PRN (13:31)
[2021-07-24] MEDS: busPIRone HCl 10 MG TAB PO SCH ×2 (08:52→20:59)
[2021-07-24] MEDS: LITHIUM CARBONATE 300 MG CAP PO SCH ×2 (08:52→20:59)
[2021-07-24 08:53] VITALS: BP 131/96; PULSE 83
[2021-07-24] MEDS: NICOTINE 21MG/24HR PATCH TRANSDERM SCH (08:53)
[2021-07-24] MEDS: SERTRALINE 100 MG TAB PO SCH (08:53)
--- NOTE | 2021-07-24 10:34 | P.PN ---
Subjective Progress Note Date: 07/24/21 Principal diagnosis: IMPRESSIONS: Bipolar disorder, current mixed episode Generalized anxiety disorder Cannabis use disorder mild Opioid use disorder, currently in remission Alcohol abuse Nicotine dependence Subjective data: The patient reports that she is doing better She says that she is looking forward to going to the residential program Patient again laughed about being able to get handytom l so easily and freely MENTAL STATUS EXAM: General Appearance: Patient appears to be her stated age is alert, poor dentition, . Patient appears to have poor hygiene and grooming. Behavior: Patient is seated without any agitated behavior. Speech: Patient's speech is hyperverbal. Fluent. Mood/Affect: Patient reports her mood is improved", affect is congruent Suicidality/Homicidality: Patient denies having any homicidal ideation intent or plan. Denies any suicidal ideations intent or plan Perceptions: Patient denies any visual hallucinations and denies any auditory hallucinations Though content/process: There is no evidence of any delusional thought content and thought process is linear. Rambles, tangential. Memory and concentration: AOX3, grossly intact for the purposes of this session. Can spell "WORLD" backwards Judgment and insight: Slightly improved STRENGTHS/WEAKNESSES: strength is that patient is resilient. Weakness is that patient has poor judgment and is impulsive INTELLECT: average IMPRESSIONS: Bipolar disorder, current mixed episode Generalized anxiety disorder Cannabis use disorder mild Opioid use disorder, currently in remission Alcohol abuse Nicotine dependence PLAN: -Patient is admitted under voluntary status to MHU for stabilization of psychiatric symptoms and safety. Patient has signed adult voluntary form and medication consent and is placed in patient's chart. -Medications : Will continue Zoloft 200 mg daily for mood/anxiety, Seroquel when necessary for insomnia. BuSpar 30 mg twice a day for anxiety. Isola 300 mg twice a day for mood stabilization -Ativan and Haldol PRN for agitation/aggression -Patient was counselled on substance abuse and desired to cut back on use -Patient was informed of the risks, benefits and side effects of the medication and patient verbally consented to taking the medications. Patient signed med consent form and was placed in chart. -Internal Medicine consult to perform medical evaluation and physical. -NRT - nicotine patch -SW on board for discharge planning. Encourage patient to participate in groups to work on coping skills. Ike Aguiar M.D. 07/24/2021 Objective - Vital Signs Vital signs: Vital Signs Temp 98 F 07/23/21 07:00 Pulse 83 07/24/21 08:53 Resp 18 07/21/21 21:20 BP 131/96 07/24/21 08:53 Pulse Ox 98 07/23/21 07:00 FiO2 Intake & Output 07/23/21 07/24/21 07/24/21 18:59 06:59 18:59 Weight 56.7 kg - Labs CBC & Chem 7: 07/23/21 07:00 07/23/21 07:00 Labs: Abnormal Lab Results - Last 24 Hours (Table) 07/23/21 Range/Units 07:00 Triglycerides 206.00 H (0.00-149.00) mg/dL Cholesterol 228.00 H (0.00-200.00) mg/dL VLDL Cholesterol, Calc 41.20 H (5.00-40.00) mg/dL HDL Cholesterol 63.00 H (40.00-60.00) mg/dL
[2021-07-25] MEDS: LITHIUM CARBONATE 300 MG CAP PO SCH (08:16)
[2021-07-25] MEDS: SERTRALINE 100 MG TAB PO SCH (08:16)
[2021-07-25] MEDS: NICOTINE 21MG/24HR PATCH TRANSDERM SCH (08:16)
[2021-07-25] MEDS: busPIRone HCl 10 MG TAB PO SCH (08:16)
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
== END 2021-07-25 10:10 | DRG 885 ==
LOC: EC 09:33 → 3MHU 18:20
PROVIDERS: ADMIT Psychiatry & Neurology Psychiatry; ATTEND Psychiatry & Neurology Psychiatry
DX: F31.60 Bipolar disorder, current episode mixed, unspecified (principal); F10.10 Alcohol abuse, uncomplicated; F11.21 Opioid dependence, in remission; F12.90 Cannabis use, unspecified, uncomplicated; F17.210 Nicotine dependence, cigarettes, uncomplicated; F41.1 Generalized anxiety disorder; G47.00 Insomnia, unspecified; I10 Essential (primary) hypertension; J42 Unspecified chronic bronchitis; Z79.899 Other long term (current) drug therapy; Z91.51 Personal history of suicidal behavior; Z20.822 Contact with and (suspected) exposure to COVID-19
CPT/HCPCS: 80053; 80061; 80306; 82075; 83036; 84443; 85025; 87635; 99285

== ENCOUNTER 2022-04-29 08:45 | Inpatient (IN) | payer MEDICAID, OTHER ==
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
[2022-04-29 10:42] LABS: Urn Cannabinoid Scrn Detected (NotDetected)
[2022-04-29 10:43] LABS: Amphetamine Screen,Urine Detected (NotDetected); Barbiturate Screen,Urine Not Detected (NotDetected); Benzodiazepines Screen,Urine Detected (NotDetected); Cocaine Screen,Urine Not Detected (NotDetected); Methadone Screen, Urine Not Detected (NotDetected); Opiate Screen,Urine Not Detected (NotDetected); Oxycodone Screen, Urine Not Detected (NotDetected); Phencyclidine Screen,Urine Not Detected (NotDetected); Tricyclic Antidepressant,Urine Detected (NotDetected)
[2022-04-29 14:26] LABS: Basophils # (A) 0.1 k/uL (0-0.2); Basophils % (A) 1 %; Eosinophils # (A) 0.9 k/uL (0-0.7); Eosinophils % (A) 9 %; HCT 38.4 % (34.0-46.0); HGB 12.7 gm/dL (11.4-16.0); Lymphocytes # (A) 2.8 k/uL (1.0-4.8); Lymphocytes % (A) 28 %; MCV 87.9 fL (80.0-100.0); Mean Platelet Volume 7.3; Monocytes # (A) 0.4 k/uL (0-1.0); Monocytes % (A) 4 %; Neutrophils # (A) 5.7 k/uL (1.3-7.7); Neutrophils % (A) 57 %; Platelet Count 253 k/uL (150-450); RBC 4.36 m/uL (3.80-5.40); RDW 12.7 % (11.5-15.5)
[2022-04-29 14:39] LABS: ALT 14 U/L (4-34); AST 20 U/L (14-36); African American GFR (CKD) >90 (>60 ml/min/1.73 sqM); Albumin 3.9 g/dL (3.5-5.0); Alkaline Phosphatase 53 U/L (38-126); Anion Gap 2 mmol/L; Blood Urea Nitrogen 13 mg/dL (7-17); Calcium 8.7 mg/dL (8.4-10.2); Carbon Dioxide 29 mmol/L (22-30); Chloride 104 mmol/L (98-107); Glucose 94 mg/dL (74-99); Lithium 1.1 mmol/L; Non-African American GFR(CKD) 88 (>60 ml/min/1.73 sqM); Potassium 4.4 mmol/L (3.5-5.1); Sodium 135 mmol/L (137-145); Total Bilirubin 0.4 mg/dL (0.2-1.3); Total Protein 6.5 g/dL (6.3-8.2)
[2022-04-29] MEDS ORDERED: HALOPERIDOL LACTATE 5 MG/ML 1 ML VIAL IM PRN (14:51)
[2022-04-29] MEDS ORDERED: MAG HYDROX/AL HYDROX/SIMETH 30 ML CUP PO PRN (14:51)
[2022-04-29] MEDS ORDERED: MAGNESIUM HYDROXIDE 2,400 MG/10 ML CUP PO PRN (14:51)
[2022-04-29] MEDS ORDERED: ACETAMINOPHEN TAB 325 MG TAB PO PRN (14:51)
[2022-04-29] MEDS ORDERED: hydrOXYzine pamoate 25 MG CAP PO PRN (14:54)
[2022-04-29] MEDS ORDERED: haloperidoL 5 MG TAB PO PRN (14:59)
[2022-04-29] MEDS ORDERED: NON FORMULARY DRUG (Buprenorphine Hcl/Naloxone Hcl [Suboxone 8 Mg-2 Mg Sl Film] 1 EACH Fil SUBLINGUAL SCH (16:00)
[2022-04-29] MEDS: clonazePAM 0.5 MG TAB PO PRN ×2 (16:55→21:30)
[2022-04-29] MEDS: Buprenorphine Hcl/Naloxone Hcl [Suboxone 8 Mg-2 Mg Sl Film] 1 EACH Fil SUBLINGUAL SCH ×2 (16:56→21:29)
--- NOTE | 2022-04-29 22:50 | P.PN ---
Progress Note - Text Progress Note Date: 04/29/22 Attempted to see the patient on the MHU at 2100 on 04/29. The patient refused to be seen or be evaluated.
[2022-04-30] MEDS: clonazePAM 0.5 MG TAB PO PRN ×2 (08:05→20:56)
[2022-04-30] MEDS: Buprenorphine Hcl/Naloxone Hcl [Suboxone 8 Mg-2 Mg Sl Film] 1 EACH Fil SUBLINGUAL SCH ×3 (08:55→20:56)
[2022-04-30] MEDS ORDERED: HALOPERIDOL LACTATE 5 MG/ML 1 ML VIAL IM STA (09:20)
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
[2022-04-30] MEDS ORDERED: SERTRALINE 100 MG TAB PO SCH (12:00)
[2022-04-30] MEDS ORDERED: flUPHENAZine 2.5 MG/ML (MDV) 10 ML VIAL IM SCH (12:00)
[2022-04-30] MEDS: LITHIUM CARBONATE 300 MG CAP PO SCH ×2 (13:13→20:55)
[2022-04-30] MEDS: NICOTINE 14MG/24HR PATCH TRANSDERM SCH (13:13)
[2022-04-30] MEDS ORDERED: flUPHENAZine 2.5 MG/ML (MDV) 10 ML VIAL IM PRN (17:01)
[2022-04-30] MEDS ORDERED: QUEtiapine 100 MG TAB PO SCH (21:00)
--- NOTE | 2022-05-01 02:55 | P.PN ---
Progress Note - Text Progress Note Date: 04/30/22 patient is irritable and refused evaluation at this time
[2022-05-01 08:36] VITALS: BP 145/93; PULSE 74; RESP 16; TEMP 97.5
[2022-05-01] MEDS: NICOTINE 14MG/24HR PATCH TRANSDERM SCH (08:38)
[2022-05-01] MEDS: LITHIUM CARBONATE 300 MG CAP PO SCH (08:38)
[2022-05-01] MEDS: clonazePAM 0.5 MG TAB PO PRN (08:39)
[2022-05-01] MEDS: Buprenorphine Hcl/Naloxone Hcl [Suboxone 8 Mg-2 Mg Sl Film] 1 EACH Fil SUBLINGUAL SCH (08:54)
[2022-05-01 11:18] LABS: Appearance,Urine Clear (Clear); Bacteria,Urine Rare /hpf; Bilirubin,Urine Negative (Negative); Blood,Urine Negative (Negative); Color,Urine Yellow; Glucose,Urine (UA) Negative (Negative); Ketones,Urine Negative (Negative); Leukocyte Esterase,Urine Small (Negative); Mucus,Urine Occasional /hpf; Nitrite,Urine Negative (Negative); PH, Urine 5.5 (5.0-8.0); Protein,Urine 1+ (Negative); Specific Gravity,Urine 1.026 (1.001-1.035); Squamous Epithelial Cell,Urine 2 /hpf (0-4); WBC,Urine 1 /hpf (0-5)
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
== END 2022-05-01 12:15 | disposition home or self-care (01) | DRG 755 ==
LOC: EC 08:45 → 3MHU 14:31
PROVIDERS: ADMIT Psychiatry & Neurology Psychiatry; ATTEND Psychiatry & Neurology Psychiatry
DX: F43.25 Adjustment disorder with mixed disturbance of emotions and conduct (principal); R45.851 Suicidal ideations; F11.20 Opioid dependence, uncomplicated; F15.10 Other stimulant abuse, uncomplicated; Z20.822 Contact with and (suspected) exposure to COVID-19; F60.3 Borderline personality disorder; F12.10 Cannabis abuse, uncomplicated; F43.10 Post-traumatic stress disorder, unspecified; I10 Essential (primary) hypertension; F41.1 Generalized anxiety disorder; B19.20 Unspecified viral hepatitis C without hepatic coma; F17.210 Nicotine dependence, cigarettes, uncomplicated; Z71.6 Tobacco abuse counseling; Z79.899 Other long term (current) drug therapy; Z91.51 Personal history of suicidal behavior; Z88.0 Allergy status to penicillin; Z71.51 Drug abuse counseling and surveillance of drug abuser; Z71.41 Alcohol abuse counseling and surveillance of alcoholic
CPT/HCPCS: 36415; 80053; 80178; 80306; 81001; 82075; 85025; 87635; 99285

== ENCOUNTER 2022-07-25 11:11 | Inpatient (IN) | payer MEDICAID, OTHER ==
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
[2022-07-25 12:10] VITALS: RESP 18
[2022-07-25 12:38] LABS: Amphetamine Screen,Urine Not Detected (NotDetected); Barbiturate Screen,Urine Not Detected (NotDetected); Benzodiazepines Screen,Urine Not Detected (NotDetected); Cocaine Screen,Urine Not Detected (NotDetected); Methadone Screen, Urine Not Detected (NotDetected); Opiate Screen,Urine Not Detected (NotDetected); Oxycodone Screen, Urine Not Detected (NotDetected); Phencyclidine Screen,Urine Not Detected (NotDetected); Tricyclic Antidepressant,Urine Not Detected (NotDetected); Urn Cannabinoid Scrn Detected (NotDetected)
[2022-07-25] MEDS ORDERED: LORazepam 2 MG/ML INJ IM STA (12:58)
[2022-07-25] MEDS ORDERED: ZIPRASIDONE 20 MG VIAL IM STA (12:58)
[2022-07-25 19:05] VITALS: PULSE 74
[2022-07-25] MEDS ORDERED: clonazePAM 0.5 MG TAB PO PRN (22:03)
[2022-07-25] MEDS ORDERED: NON FORMULARY DRUG (Naloxone Hcl [Naloxone Hcl] 4 MG Spray) NASAL PRN (22:03)
[2022-07-25] MEDS ORDERED: IBUPROFEN 800 MG TAB PO PRN (22:03)
[2022-07-25] MEDS ORDERED: MAGNESIUM HYDROXIDE 2,400 MG/10 ML CUP PO PRN (22:05)
[2022-07-25] MEDS ORDERED: OLANZapine 7.5 MG TAB PO PRN (22:05)
[2022-07-25] MEDS ORDERED: ACETAMINOPHEN TAB 325 MG TAB PO PRN (22:05)
[2022-07-25] MEDS ORDERED: MAG HYDROX/AL HYDROX/SIMETH 30 ML CUP PO PRN (22:05)
[2022-07-25] MEDS ORDERED: OLANZapine 10 MG VIAL IM PRN (22:05)
[2022-07-25] MEDS ORDERED: OLANZapine 5 MG TAB PO PRN (22:25)
[2022-07-25] MEDS ORDERED: NON FORMULARY DRUG (Buprenorphine Hcl/Naloxone Hcl [Suboxone 8 Mg-2 Mg Sl Film] 1 FILM) SUBLINGUAL SCH (22:48)
[2022-07-25 22:50] VITALS: BP 146/96; TEMP 97.6
[2022-07-25] MEDS: NON FORMULARY DRUG (Buprenorphine Hcl/Naloxone Hcl [Suboxone 8 Mg-2 Mg Sl Film] 1 EACH Fil SUBLINGUAL SCH (23:21)
[2022-07-25] MEDS: LITHIUM CARBONATE 300 MG CAP PO SCH (23:22)
[2022-07-25] MEDS: SERTRALINE 100 MG TAB PO SCH (23:22)
[2022-07-26] MEDS ORDERED: LITHIUM CARBONATE 300 MG CAP PO SCH (09:00)
[2022-07-26] MEDS ORDERED: SERTRALINE 100 MG TAB PO SCH (09:00)
[2022-07-26] MEDS ORDERED: NON FORMULARY DRUG (Buprenorphine Hcl/Naloxone Hcl [Suboxone 8 Mg-2 Mg Sl Film] 1 EACH Fil SUBLINGUAL SCH (09:00)
[2022-07-26] MEDS: SERTRALINE 100 MG TAB PO SCH ×2 (09:38→21:36)
[2022-07-26] MEDS: NON FORMULARY DRUG (Buprenorphine Hcl/Naloxone Hcl [Suboxone 8 Mg-2 Mg Sl Film] 1 EACH Fil SUBLINGUAL SCH ×2 (09:38→18:08)
[2022-07-26] MEDS: LITHIUM CARBONATE 300 MG CAP PO SCH ×2 (09:38→21:37)
[2022-07-26] MEDS ORDERED: QUEtiapine 50 MG TAB PO STA (11:43)
[2022-07-26] MEDS ORDERED: hydrOXYzine pamoate 25 MG CAP PO PRN (11:43)
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
[2022-07-26] MEDS: NICOTINE 14MG/24HR PATCH TRANSDERM SCH (12:07)
[2022-07-26] MEDS: clonazePAM 0.5 MG TAB PO SCH ×2 (18:11→21:37)
[2022-07-26] MEDS ORDERED: QUEtiapine 200 MG TAB PO SCH (21:00)
[2022-07-27] MEDS: NON FORMULARY DRUG (Buprenorphine Hcl/Naloxone Hcl [Suboxone 8 Mg-2 Mg Sl Film] 1 EACH Fil SUBLINGUAL SCH ×2 (00:59→09:06)
[2022-07-27] MEDS: clonazePAM 0.5 MG TAB PO SCH (08:37)
[2022-07-27] MEDS: SERTRALINE 100 MG TAB PO SCH (08:37)
[2022-07-27] MEDS: NICOTINE 14MG/24HR PATCH TRANSDERM SCH (08:37)
[2022-07-27] MEDS: LITHIUM CARBONATE 300 MG CAP PO SCH (08:37)
--- NOTE | 2022-07-27 10:38 | P.DS ---
Providers Date of admission: 07/25/22 22:00 Expected date of discharge: 07/27/22 Attending physician: Dg Fair MD Consults: 07/25/22 22:05 Consult Physician Routine Consulting Provider: Adonis Payan Consult Reason/Comments: H&P and medical Do you want consulting provider notified?: Yes Primary care physician: Adonis Payan - Discharge Diagnosis(es) (1) Bipolar disorder, unspecified Current Visit: Yes Status: Acute Priority: High (2) Borderline personality disorder Current Visit: Yes Status: Acute Priority: High (3) Generalized anxiety disorder Current Visit: Yes Status: Acute Priority: Medium (4) Opioid dependence on agonist therapy Current Visit: Yes Status: Acute Priority: Low (5) Cannabis use disorder Current Visit: Yes Status: Acute Priority: Low (6) Nicotine dependence Current Visit: Yes Status: Acute Priority: Low Hospital Course: Admission HPI: Admission note was completed by advertising writer "Patient is a 42-year-old female, is currently and going through a divorce, she lives with a roommate in an apartment, she currently works as a sales and service engineer, she has 2 kids. Patient presented to the hospital on a petition by roommate stating the patient was suicidal and threatened to drink cleaning fluid and also attempted to cut herself at home. Patient has a history of polysubstance abuse, has been on the mental health unit in April of this year. Patient's urine drug screen was positive for THC. She is currently on Klonopin, Suboxone and bipolar medications including Zoloft, lithium and Seroquel. Patient was noted to be irritable this morning with staff prior to being seen. Senior Stock Plan Administrator went to patient's room today for the interview and was accompanied by female strategic intelligence officer. Patient was initially irritable with advertising writer and very focused on medications and also discharge. She claims that she isn't having a lot of issues with her roommate and states that she has been stealing her money, controlling her and also exposing her to do dangerous people I commented that he house. She claims that what she had right written on the petition was false. She was denying it all. She claims that her roommate essentially convinced her to go part-time to harm herself so that she can force her to go to the hospital. She claims that she was "coerced" and that she wants to get her out of the house. She claims that the cut was very superficial and not intended to harm herself. she claims that she does struggle with anxiety at time and was irritable with advertising writer during the conversation however was able to calm herself down and explain the situaiton. she was focused on her klonopin and states that she usually takes it three times a day and has been taking her other medications. she states that her seroquel dose was lowered and was agreeable to have it increased. is denying any depression. states that she wants to live for her kids and her future. she states that she does not want to return to her old home and would rather stay with her family until she is able to find another housing situation. she is denying any paranoia or delusions at this time. She claims that her sleep has been somewhat poor lately, and that her appetite is fair. Patient denies any suicidal or homicidal ideations intent or plan. At this time patient denies any auditory or visual hallucinations. Patient admits to using marijuana daily, also uses vape products regularly." Hospital course: Upon admission to the unit patient was [admitted involuntarily on a petition and certificate however patient was agreeable to sign AFV and continue with mental health treatment on the unit. Patient was initially irritable however with time and treatment she improved significantly and got along well with other patients on the unit and followed unit protocol. Patient was compliant with the medications and denied any side effects throughout hospital course. Patient was started on seroquel and increased to a dose of 200 mg qhs for insomnia/mood stabilization, resumed zoloft 200 mg bid for mood/anxiety, lithium 300 mg bid for mood stbailization, she was also resumed on her home dose of klonopin 0.5 mg tid for anxiety and also suboxone for opioid dependence. Patient spoke of her stressors and engaged in therapy both group and individual. Patient was also seen by medical team for history and physical exam. Throughout the course of the hospitalization patient gradually improved with regards to mood, anxiety, lability/irritability, sleep and became more future oriented with improved insight and judgment. On the day of discharge patient denied any suicidal or homicidal ideations intent or plan denied any auditory or visual hallucinations. Patient endorsed wanting to live for her health, future and children. The patient denied any access to guns or weapons. Patient denied any paranoia and did not endorse any delusions. Patient does have a significant history of substance abuse and was counseled on abstaining from all substances including alcohol and marijuana. patient took the access line intake number and states that she will make the call to them in the next few days to try and arrange inpt rehab at . Patient was also counseled on the medications and need for regular compliance and was encouraged to follow-up with their outpatient appointment for mental health and also for primary care. Prior to discharge a family meeting will be arranged by director of social services to answer any questions and ensure safety upon discharge. advertising writer called patients auntee Toney on her phone for a family meeting who states that patient is welcome to stay at her house upon discharge and claims that there is not guns or weapons at the home and the envt is safe. Mental status exam: General Appearance: Patient appears to be thin, short dyed blue hair, stated age is alert, pleasant, and cooperative. Patient is in no acute distress and has improved hygiene and grooming Behavior: Patient is calmly seated without any agitated behavior. cooperative. Speech: Patient's speech is fluent and nonpressured. Mood/Affect: Patient reports their mood is "better", affect is congruent Suicidality/Homicidality: Patient denies having any suicidal or homicidal ideation intent or plan. Perceptions: Patient denies any auditory or visual hallucinations. Though content/process: There is no evidence of any delusional thought content and thought process is linear and goal-directed. more future oriented Memory and concentration: AOX3, grossly intact for the purposes of this session. Can spell "WORLD" backwards correctly. Judgment and insight: improved with guarded prognosis Impression: Bipolar disorder unspecified borderline personality disorder opioid dependence on agonist therapy generalized anxiety disorder cannabis use disorder Nicotine dependence Plan: -Continue with discharge today as patient has improved and stabilized psychiatrically and is not currently an imminent threat to herself and/or others. Patient will remain at chronically elevated risk for harm to self and/or others due to her impulsivity and polysubstance abuse. -Continue medications: Can continue her home medications prescribed by her PCP including Klonopin 0.5 mg 3 times a day for anxiety, Suboxone for opioid use disorder, advertising writer prescribed a 2 week supply of her other psychiatric medications including Seroquel 200 mg daily at bedtime for mood stabilization/insomnia, Zoloft 100 mg twice a day for mood/anxiety, lithium 300 mg twice a day for mood stabilization. -Patient was counseled on the need for medication compliance and appropriate follow-up at mental health and also primary care for medical issues. Patient verbalized understanding and agreed. -Social work to arrange for and conduct family meeting to ensure safety upon discharge and answer any questions/concerns. advertising writer also spoke with patients auntee Toney over the phone as noted above in further detail. Social work also to arrange for patients follow up appointments with [facility] for psychiatric care along with follow up with primary care provider. -Patient counseled on abstaining from recreational drugs and marijuana and alcohol. Was informed/educated on the adverse effects on their physical and mental health. Patient verbally agreed and understood. patient claims that she will be calling the access line in the next few days to arrange for inpt rehab at . -Patient was instructed to return to the hospital or seek immediate medical care if their psychiatric or medical symptoms do worsen or reoccur. Allergies Allergy/AdvReac Type Severity Reaction Status Date / Time amoxicillin Allergy Swelling Verified 07/25/22 14:14 and Hives all over Penicillins Allergy Swelling Verified 07/25/22 14:14 and Hives all over Laboratory Results Urine Opiates Screen Not Detected (NotDetected) 07/25/22 12:05 Ur Oxycodone Screen Not Detected (NotDetected) 07/25/22 12:05 Urine Methadone Screen Not Detected (NotDetected) 07/25/22 12:05 Ur Propoxyphene Screen Not Detected (NotDetected) 07/25/22 12:05 Ur Barbiturates Screen Not Detected (NotDetected) 07/25/22 12:05 U Tricyclic Antidepress Not Detected (NotDetected) 07/25/22 12:05 Ur Phencyclidine Scrn Not Detected (NotDetected) 07/25/22 12:05 Ur Amphetamines Screen Not Detected (NotDetected) 07/25/22 12:05 U Methamphetamines Scrn Not Detected (NotDetected) 07/25/22 12:05 U Benzodiazepines Scrn Not Detected (NotDetected) 07/25/22 12:05 Urine Cocaine Screen Not Detected (NotDetected) 07/25/22 12:05 U Marijuana (THC) Screen Detected (NotDetected) H 07/25/22 12:05 Coronavirus (PCR) Not Detected (Not Detectd) 07/25/22 20:02 Vital Signs Temp 97.6 F 07/25/22 22:48 Pulse 74 07/25/22 22:48 Resp 18 07/25/22 22:48 BP 146/96 07/25/22 22:48 Pulse Ox 98 07/25/22 22:48 FiO2 Patient Condition at Discharge: Stable Plan - Discharge Summary New Discharge Prescriptions: New Nicotine 14Mg/24Hr Patch [Habitrol] 1 patch TRANSDERM DAILY 14 Days #14 patch QUEtiapine [SEROquel] 200 mg PO HS 14 Days #14 tab Continue Buprenorphine HCl/Naloxone HCl [Suboxone 8 mg-2 mg Sl Film] 1 film SL TID Ibuprofen [Motrin] 800 mg PO QID PRN PRN Reason: Fever And/ Or Pain clonazePAM [KlonoPIN] 0.5 mg PO TID PRN PRN Reason: Anxiety Naloxone HCl 4 mg NASAL ONCE PRN PRN Reason: O.D. Dewy Rose Carbonate 300 mg PO BID 15 Days #30 cap Changed Sertraline [Zoloft] 100 mg PO BID 14 Days #28 tab Discontinued QUEtiapine [SEROquel] 100 mg PO HS PRN PRN Reason: Insomnia/Mood Discharge Medication List Buprenorphine HCl/Naloxone HCl [Suboxone 8 mg-2 mg Sl Film] 1 film SL TID 04/29/22 [History] Naloxone HCl 4 mg NASAL ONCE PRN 04/29/22 [History] clonazePAM [KlonoPIN] 0.5 mg PO TID PRN 04/29/22 [History] Ibuprofen [Motrin] 800 mg PO QID PRN 07/25/22 [History] Dewy Rose Carbonate 300 mg PO BID 15 Days #30 cap 07/27/22 [Rx] Nicotine 14Mg/24Hr Patch [Habitrol] 1 patch TRANSDERM DAILY 14 Days #14 patch 07/27/22 [Rx] QUEtiapine [SEROquel] 200 mg PO HS 14 Days #14 tab 07/27/22 [Rx] Sertraline [Zoloft] 100 mg PO BID 14 Days #28 tab 07/27/22 [Rx] Follow up Appointment(s)/Referral(s): [facility] [Outside] - 07/28/22 11:00 am (with Mis) Adonis Payan MD [Primary Care Provider] - 1-2 days Activity/Diet/Wound Care/Special Instructions: Avoid the use of street drugs and alcohol. Take all medications as prescribed. When you are in need of refills on your medications, please contact your medical provider and/or outpatient psychiatrist to have this done. Please go to scheduled outpatient appointments for aftercare treatment. If symptoms return or become worse, call the crisis line at and/or go to the nearest emergency room for evaluation. Discharge Disposition: HOME SELF-CARE
--- NOTE | 2022-07-27 21:22 | CONS ---
CONSULTATION CHIEF COMPLAINT: Major depression and suicidal thoughts. HISTORY OF PRESENT ILLNESS: This is another admission for this 42-year-old female who was petitioned in after she became threatening to herself and others. She has a long-standing history of bipolar depression and schizophrenia. REVIEW OF SYSTEMS: At the present time, she feels fine. She is having no headaches, chest pain, shortness of breath, confusion, abdominal pain, etc. Past medical history, family history, personal and social histories reveal that she is allergic to Penicillins. MEDICATIONS: She is on, 1. Sertraline 100 mg twice a day. 2. Seroquel 100 mg at bedtime. 3. Lena 300 mg twice a day. 4. Klonopin 0.5 four times a day p.r.n. 5. Ibuprofen 800 q.i.d. 6. Suboxone 8/2 three times a day. Remainder of her history is unremarkable. She does smoke. PHYSICAL EXAMINATION: VITAL SIGNS: Blood pressure is 120/80 with a pulse of 88, respirations 16. She is afebrile. GENERAL: She appeared to be small and in no acute distress. HEAD, EARS, EYES, NOSE, MOUTH AND THROAT: Normal. CHEST: Clear. CARDIAC: Normal. ABDOMEN: Soft, nontender. EXTREMITIES: Normal. NEUROLOGICAL: She is intact. She is admitted to the hospital with diagnosis of: 1. Bipolar depression. 2. Suicidal thoughts. 3. History of opioid abuse. RECOMMENDATIONS: None. Thank you respectfully, MMSONAL / MARYA: [id number] /
== END 2022-07-27 14:53 | disposition home or self-care (01) | DRG 753 ==
LOC: EC 11:11 → 3MHU 22:00
PROVIDERS: ADMIT Psychiatry & Neurology Psychiatry; ATTEND Psychiatry & Neurology Psychiatry
DX: F31.9 Bipolar disorder, unspecified (principal); F41.1 Generalized anxiety disorder; F60.3 Borderline personality disorder; R45.851 Suicidal ideations; Z20.822 Contact with and (suspected) exposure to COVID-19; I10 Essential (primary) hypertension; F20.9 Schizophrenia, unspecified; B18.2 Chronic viral hepatitis C; G47.00 Insomnia, unspecified; F11.20 Opioid dependence, uncomplicated; F12.10 Cannabis abuse, uncomplicated; J42 Unspecified chronic bronchitis; Z88.0 Allergy status to penicillin; Z88.1 Allergy status to other antibiotic agents; Z71.51 Drug abuse counseling and surveillance of drug abuser; Z79.899 Other long term (current) drug therapy
CPT/HCPCS: 80306; 82075; 87635; 96372; 96374; 96375; 99285